=== PATIENT | male | born 1935 | race Two or more races ===

== ENCOUNTER 2021-07-11 10:26 | Inpatient (IN) | payer MEDICARE, BC ==
[~2021-07-11] VITALS: Ht 172.7 cm; Wt 82.6 kg
--- NOTE | 2021-07-11 10:46 | NUR ---
The patient BIBA RAKevin From Home "Weaker than usual, NOT able to care for self Covid +". The patient is alert and oriented x1. In room air and denies SOB. Respiration regular and unlabored. oxygen saturation level in room air is at 94%. Denies pain. Attached to the monitor. Will continue to monitor the patient.
--- NOTE | 2021-07-11 10:49 | NUR ---
STARTED LAC G 18, BLOOD SPECIMEN COLLECTED, SALINE LOCKED THE LINE
[2021-07-11 11:04] LABS: BASOPHILS % (AUTO) 0.5 % (0.0-2.0); HEMATOCRIT 41 % (39-51); LYMPHOCYTES # (AUTO) 0.8 K/uL (0.8-4.8); LYMPHOCYTES % (AUTO) 18.3 % (20.0-44.0); MEAN CORPUSCULAR HGB CONC 34 g/dl (31.0-36.0); MEAN CORPUSCULAR VOLUME 100 fL (80-96); MONOCYTES # (AUTO) 0.4 K/uL (0.1-1.30); MONOCYTES % (AUTO) 9.1 % (2.0-12.0); NEUTROPHILS # (AUTO) 3.1 K/uL (1.8-8.9); NEUTROPHILS % (AUTO) 72.1 % (43.0-81.0); PLATELET COUNT (AUTO) 156 K/uL (150-450); RED BLOOD CELL COUNT(AUTO) 4.16 MIL/uL (4.5-6.0); WHITE BLOOD COUNT (AUTO) 4.3 K/uL (4.3-11.0)
--- NOTE | 2021-07-11 11:13 | NUR ---
COVID SWAB DONE AND SENT TO THE LAB
[2021-07-11 11:14] LABS: CALCIUM, SERUM 8.9 mg/dL (8.5-10.1); CARBON DIOXIDE 22 mmol/L (21-32); CHLORIDE 102 mmol/L (98-107); CREATININE 0.8 mg/dL (0.6-1.3); GLUCOSE 90 mg/dL (74-106); POTASSIUM 4.4 mmol/L (3.5-5.1); SODIUM SERUM 136 mmol/L (136-145); UREA NITROGEN, BLOOD 29 mg/dL (7-18)
[2021-07-11 11:27] LABS: ALANINE AMINOTRANSFERASE 40 U/L (12-78); ALBUMIN 3.1 g/dL (3.4-5.0); ALKALINE PHOSPHATASE 42 U/L (46-116); ASPARTATE AMINOTRANSFERASE 53 U/L (15-37); BILIRUBIN,TOTAL 1.1 mg/dL (0.2-1.0); TOTAL PROTEIN, SERUM 6.7 g/dL (6.4-8.2)
[2021-07-11] MEDS ORDERED: DEXAMETHASONE SOD PHOSPHATE 10 MG/ML VIAL IV ONE (12:00)
--- NOTE | 2021-07-11 12:00 | NUR ---
pt received in bed aaox2. not in resp distress, breathing even and unlabored but noted satting @ 89% on RA. placed on o2 via nc@ 6lpm, only satting @ 91-92%. pt is now on simple face mask @ 10lpm satting @ 98%. Pt still unable to provide urine, still trying. will continue to moniotr pt
[2021-07-11] MEDS ORDERED: DEXAMETHASONE SOD PHOSPHATE 10 MG/ML VIAL ONE (12:01)
[2021-07-11 12:03] LABS: CREATINE KINASE, TOTAL 200 U/L (39-308); FERRITIN 448 ng/mL (8-388)
[2021-07-11 12:09] LABS: C-REACTIVE PROTEIN 6.6 mg/dL (0.0-0.9)
[2021-07-11 12:25] LABS: D-DIMER 1.26 mg/L(FEU (0.17-0.50)
[2021-07-11] MEDS ORDERED: LIDOCAINE 2% JEL UROJET 10 ML MM ONE ×2 (13:21→13:30)
--- NOTE | 2021-07-11 13:31 | NUR ---
URINE COLLECTED VIA IN AND OUT CATH WITH STRICT STERILE TECHNIQUE OBSERVED DUIRNG THE PROCEDURE. URINE SENT TO LAB
--- NOTE | 2021-07-11 13:41 | NUR ---
BED 104
--- NOTE | 2021-07-11 13:47 | NUR ---
[place] STEP DAUGHTER [phone]
[2021-07-11 13:50] LABS: BILIRUBIN,URINE SMALL (NEGATIVE); COLOR,URINE YELLOW (YELLOW); LEUKOCYTE ESTERASE ,URINE Negative (NEGATIVE); NITRITE, URINE Negative (NEGATIVE); PROTEIN,URINE 100 mg/dl (NEGATIVE); UGLUCOSE Negative (NEGATIVE)
[2021-07-11] MEDS ORDERED: ONDANSETRON HCL/PF 4 MG/2 ML VIAL IVP PRN (14:00)
[2021-07-11] MEDS ORDERED: IV NS 0.9% 1,000 ML IV PRN (14:00)
[2021-07-11] MEDS ORDERED: ACETAMINOPHEN 325 MG TABLET PO PRN (14:00)
--- NOTE | 2021-07-11 14:02 | NUR ---
PT'S STPE DAUGHTER CALLED, VERY RUDE, YELLING AND DOES NOT LET THE NURSE FINISH TALKING. SHE IS UPDATED WITH PT'S CONDITION AND MADE AWARE THAT HE NEEDS TO BE ADMITTED.
[2021-07-11 14:03] LABS: BACTERIA,URINE Few /HPF (None Seen); MUCUS,URINE Few /LPF (None Seen); RBC,URINE 0-2 /HPF (0-2); SQUAMOUS EPITHELIAL CELL,UR Few /HPF (None Seen); URINE AMORPHOUS URATE Few /HPF (None Seen); WBC,URINE 0-2 /HPF (0-3)
--- NOTE | 2021-07-11 14:16 | NUR ---
REPORT GIVEN TO BRENDAN JEAN FOR LUCRECIA
--- NOTE | 2021-07-11 14:44 | NUR ---
PT TRANSPORTED TO UNIT ON [place] WITH EMT AND RN AT BEDSIDE. WITH ACLS PROTOCOL. NAD NOTED DURING TRANSPORT.
[2021-07-11 15:02] VITALS: BP 133/60
--- NOTE | 2021-07-11 15:15 | NUR ---
EMPLOYMENT PROGRAMS ANALYST OPENING NOTES Received pt from ER with dx of COVID-19 PNA. Pt is a/o x2 to person and place. Pt has a simple mask with 10L, oxygen saturation of 97%, with no s/sx of acute respiratory distress or pain. Pt is able to use a urinal. Pt is on a cardiac diet. Pt has a (L) AC 18 gauge IV flushed, patent, with dressing dry and in tact. Pt vital signs are (T) 98.3; (HR) 58; (RR) 20; (O2) 97%; (BP) 133/60 with 0/10 pain. Safety measures in place with bed in lowest locked position, call light within reach, side rails up x2, and bed alarm on.
[2021-07-11 16:00] VITALS: BP 133/60
[2021-07-11] MEDS: ENOXAPARIN SODIUM 40 MG/0.4 ML DISP.SYRIN SQ SCH (17:19)
--- NOTE | 2021-07-11 18:45 | NUR ---
MOLD LAMINATOR CLOSING NOTES Pt resting comfortably in bed, just finished dinner and ate 75%. Pt has a simple mask with 10L, oxygen saturation of 97%, with no s/sx of respiratory distress or pain. Pt has a urinary output of 400ml on shift.. Pt is on a cardiac diet. Pt has a (L) AC 18 gauge IV infusing 0.9% normal saline @60ml/hr per MD order. Safety measures in place with bed in lowest locked position, call light within reach, side rails up x2, and bed alarm on.
[2021-07-11 20:00] VITALS: BP 112/60
[2021-07-11] MEDS ORDERED: REMDESIVIR (CHARGED) 200 MG, *LOADING DOSE 1 EA in IV NS 0.9% 210 ML IV ONE (21:00)
[2021-07-12] VITALS: BP 122/61
[2021-07-12 04:00] VITALS: BP 143/73
--- NOTE | 2021-07-12 07:15 | NUR ---
RN OPENING NOTE Received patient asleep in bed on simple mask 10L appears calm and relaxed no signs of distress. Tele reading SR 80-90s. AOx2-3. On a diaper. Has LAC #18 running NS @ 60ml/hr. Safety measures maintained. Call light within reach. Will cont to monitor.
[2021-07-12 08:00] VITALS: BP 143/66
[2021-07-12] MEDS: DEXAMETHASONE SOD PHOSPHATE 4 MG/ML VIAL IV SCH (08:46)
[2021-07-12] MEDS: ENSURE ENLIVE 237 ML LIQUID (VANILLA) PO SCH ×2 (09:30→17:49)
[2021-07-12 10:53] LABS: ABG BASE EXCESS -3.4 mmol/L; ABG OXYGEN SATURATION 89.8 % (92.0-98.5); ABG PCO2 26.5 mmHg (35.0-45.0); ABG PH 7.466 (7.350-7.450); ABG PO2 56.3 mmHg (75.0-100.0); AaDO2 234.4 mmHg; COHb 0.2 % (0.5-1.5); O2Hb 89.6 % (94.0-97.0); SITE, ABG Right Radial; VENT MODE, BG SIMPLE MASK
--- NOTE | 2021-07-12 11:00 | NUR ---
ABG RESULTS REPORTED TO DR. CROW AND VAL. NEW ORDERS TO PUT PATIENT ON HIGH FLOW. RT AT BEDSIDE. HIGHFLOW 50L 80%
[2021-07-12 12:00] VITALS: BP 119/32
[2021-07-12] MEDS ORDERED: REMDESIVIR (CHARGED) 200 MG, *LOADING DOSE 1 EA in IV NS 0.9% 210 ML IV ONE (12:00)
[2021-07-12 15:45] LABS: BASOPHILS % (AUTO) 0.2 % (0.0-2.0); HEMATOCRIT 39 % (39-51); HEMOGLOBIN 13.5 g/dL (13.5-17.5); LYMPHOCYTES # (AUTO) 0.4 K/uL (0.8-4.8); LYMPHOCYTES % (AUTO) 4.3 % (20.0-44.0); MEAN CORPUSCULAR HGB CONC 34 g/dl (31.0-36.0); MEAN CORPUSCULAR VOLUME 98 fL (80-96); MONOCYTES # (AUTO) 0.3 K/uL (0.1-1.30); MONOCYTES % (AUTO) 3.7 % (2.0-12.0); NEUTROPHILS # (AUTO) 8.6 K/uL (1.8-8.9); NEUTROPHILS % (AUTO) 91.8 % (43.0-81.0); PLATELET COUNT (AUTO) 161 K/uL (150-450); RED BLOOD CELL COUNT(AUTO) 4.01 MIL/uL (4.5-6.0); WHITE BLOOD COUNT (AUTO) 9.4 K/uL (4.3-11.0)
[2021-07-12 15:57] LABS: CALCIUM, SERUM 8.1 mg/dL (8.5-10.1); CREATININE 0.7 mg/dL (0.6-1.3); PHOSPHORUS 2.1 mg/dL (2.5-4.9); POTASSIUM 4.2 mmol/L (3.5-5.1)
[2021-07-12 16:00] VITALS: BP 125/49
[2021-07-12] MEDS ORDERED: TOCILIZUMAB 400 MG in IV NS 0.9% 80 ML IV ONE (17:30)
--- NOTE | 2021-07-12 18:47 | NUR ---
RN CLOSING NOTE Patient in bed asleep on high flow tolerating well. Received Remdesivir bag #1 tolerated well. Flushed with 30ml saline after. No co pain or discomfort. AO x2-3 has episodes of sinus bradycardia 49 lowest. Patient has good food intake. All due meds given. Vital signs within normal limits. Safety measures maintained. Will endorse to operation shift supervisor nurse for rochelle.
--- NOTE | 2021-07-12 19:20 | NUR ---
RN NOTE RECEIVED PATIENT IN BED RESTING ALERT ORIENTED X2-3 VERBALLY RESPONSIVE ON HIGH FLOW OXYGEN O2:95% IV SITE IS ON LEFT AC INTACT PATENT CONTINET TO BOWEL/BLADDER SAFETY MEASURE IMPLEMENT BED IN LOW POSITION AND LOCKED,CALL LIGHT WITHIN REACH CONTINUE TO MONITOR.
[2021-07-12 20:00] VITALS: BP 114/48
[2021-07-12] MEDS: ENOXAPARIN SODIUM 40 MG/0.4 ML DISP.SYRIN SQ SCH (20:29)
[2021-07-12] MEDS ORDERED: REMDESIVIR (CHARGED) 100 MG in IV NS 0.9% 100 ML IV SCH (21:00)
[2021-07-12] MEDS ORDERED: REMDESIVIR (CHARGED) 100 MG in IV NS 0.9% 230 ML IV SCH (21:00)
[2021-07-13] VITALS: BP 125/53
[2021-07-13 04:00] VITALS: BP 130/64
--- NOTE | 2021-07-13 06:32 | NUR ---
RN NOTE PATIENT REMAINS ON ALERT ORIENTED 2-3 VERBALLY RESPONSIVE,NO SOB NOT ACUTE DISTRESS NOTED HE IS ON HIGH FLOW OXYGEN 50 L FIO2:90% ALL DUE MEDS GIVEN MD ORDERED KEEP CLEAN AND DRY ALL THE TIME ALL NEEDS MET.KEPT CLEAN AND DRY ALL THE TIME ALL NEEDS MET ENDORSE NEXT COMING SHIFT FOR CODOMINATION OF CARE.
[2021-07-13 07:14] LABS: BASOPHILS % (AUTO) 0.2 % (0.0-2.0); HEMATOCRIT 40 % (39-51); HEMOGLOBIN 13.6 g/dL (13.5-17.5); LYMPHOCYTES # (AUTO) 0.7 K/uL (0.8-4.8); LYMPHOCYTES % (AUTO) 6.5 % (20.0-44.0); MEAN CORPUSCULAR HGB CONC 34 g/dl (31.0-36.0); MEAN CORPUSCULAR VOLUME 100 fL (80-96); MONOCYTES # (AUTO) 0.2 K/uL (0.1-1.30); MONOCYTES % (AUTO) 2.3 % (2.0-12.0); NEUTROPHILS # (AUTO) 9.6 K/uL (1.8-8.9); PLATELET COUNT (AUTO) 161 K/uL (150-450); WHITE BLOOD COUNT (AUTO) 10.6 K/uL (4.3-11.0)
--- NOTE | 2021-07-13 07:15 | NUR ---
RN OPENING NOTE RECEIVED PATIENT IN BED RESTING ALERT ORIENTED X1-2, FORGETFUL AND COHERENT. PATIENT ON HIGH FLOW OXYGEN AT 50 WITH FIO2 90%. WITH IV SITE IS ON LEFT AC INTACT PATENT AND LEFT HAND G22. PATIENT IS CONTINENT OF BOWEL/BLADDER. SAFETY MEASURE ENSURED WITH BED IN LOW POSITION AND LOCKED, CALL LIGHT WITHIN REACH AT ALL TIMES. WILL CONTINUE TO MONITOR PATIENT.
[2021-07-13 07:41] LABS: ALBUMIN 2.3 g/dL (3.4-5.0); BILIRUBIN,DIRECT 0.2 mg/dL (0.0-0.2); BILIRUBIN,TOTAL 0.9 mg/dL (0.2-1.0); CALCIUM, SERUM 8.4 mg/dL (8.5-10.1); CREATININE 0.7 mg/dL (0.6-1.3); MAGNESIUM 2.1 mg/dL (1.8-2.4); PHOSPHORUS 2.8 mg/dL (2.5-4.9); TOTAL PROTEIN, SERUM 5.8 g/dL (6.4-8.2)
[2021-07-13 08:00] VITALS: BP 122/59
[2021-07-13] MEDS: DEXAMETHASONE SOD PHOSPHATE 4 MG/ML VIAL IV SCH (09:02)
[2021-07-13] MEDS: ENSURE ENLIVE 237 ML LIQUID (VANILLA) PO SCH ×2 (09:03→18:02)
--- NOTE | 2021-07-13 10:00 | NUR ---
RN NOTE PATIENT SEEN BY DR. CROW. WILL CONTINUE TO MONITOR PATIENT.
--- NOTE | 2021-07-13 11:00 | NUR ---
RN NOTE OXYGEN TITRATED ACCORDINGLY PER MD ORDER. WILL CONTINUE TO MONITOR PATIENT.
[2021-07-13] MEDS: REMDESIVIR (CHARGED) 100 MG in IV NS 0.9% 100 ML IV SCH (11:47)
[2021-07-13 12:00] VITALS: BP 124/64
[2021-07-13 16:00] VITALS: BP 113/70
--- NOTE | 2021-07-13 19:00 | NUR ---
RN CLOSING NOTE RECEIVED PATIENT IN BED RESTING ALERT ORIENTED X1-2, FORGETFUL AND COHERENT. PATIENT ON HIGH FLOW OXYGEN AT 60 WITH FIO2 100%. WITH MD ORDER TO TITRATE ACCORDINGLY. WITH IV SITE IS ON LEFT AC INTACT PATENT AND LEFT HAND G22. PATIENT IS CONTINENT OF BOWEL/BLADDER. SAFETY MEASURE ENSURED WITH BED IN LOW POSITION AND LOCKED, CALL LIGHT WITHIN REACH AT ALL TIMES. WILL ENDORSE PATIENT FOR CONTINUITY OF CARE.
--- NOTE | 2021-07-13 19:58 | NUR ---
RN NOTE OXYGEN TITRATED ACCORDINGLY PER MD ORDER. WILL CONTINUE TO MONITOR PATIENT.
[2021-07-13 20:00] VITALS: BP 143/62
[2021-07-13] MEDS: ENOXAPARIN SODIUM 40 MG/0.4 ML DISP.SYRIN SQ SCH (20:36)
[2021-07-14] VITALS: BP 124/72
[2021-07-14 04:00] VITALS: BP 107/53
[2021-07-14 06:04] LABS: BASOPHILS % (AUTO) 0.1 % (0.0-2.0); HEMATOCRIT 43 % (39-51); HEMOGLOBIN 14.8 g/dL (13.5-17.5); LYMPHOCYTES # (AUTO) 0.6 K/uL (0.8-4.8); LYMPHOCYTES % (AUTO) 5.3 % (20.0-44.0); MEAN CORPUSCULAR HGB CONC 34 g/dl (31.0-36.0); MEAN CORPUSCULAR VOLUME 99 fL (80-96); MONOCYTES # (AUTO) 0.4 K/uL (0.1-1.30); MONOCYTES % (AUTO) 3.6 % (2.0-12.0); PLATELET COUNT (AUTO) 207 K/uL (150-450); RED BLOOD CELL COUNT(AUTO) 4.36 MIL/uL (4.5-6.0); WHITE BLOOD COUNT (AUTO) 10.9 K/uL (4.3-11.0)
[2021-07-14 06:36] LABS: ALBUMIN 2.4 g/dL (3.4-5.0); BILIRUBIN,DIRECT 0.3 mg/dL (0.0-0.2); CALCIUM, SERUM 8.6 mg/dL (8.5-10.1); CREATININE 0.7 mg/dL (0.6-1.3); POTASSIUM 4.1 mmol/L (3.5-5.1); TOTAL PROTEIN, SERUM 5.9 g/dL (6.4-8.2)
--- NOTE | 2021-07-14 06:38 | NUR ---
RN NOTES, NO SIGNIFICANT CHANGE IN CONDITION DURING THE NIGHT, CONTINUE ON HF AT 60L 100% WITH O2 >90%, NO SOB/ACUTE DISTRESS, WILL ENDORSE CONTINUITY OF CARE TO ONCOMING NURSE
--- NOTE | 2021-07-14 07:47 | NUR ---
RN OPENING NOTE Pt is Awake, alert to oriented x 3, no respiratory distress, no SOB. on High flow 60L 100 FI02, Left AC/Hand with no s/sx of infiltration. On safety precautions implemented bed locked in lowest position, call light within reach.
[2021-07-14 08:00] VITALS: BP 142/73
[2021-07-14] MEDS: ENSURE ENLIVE 237 ML LIQUID (VANILLA) PO SCH ×2 (09:09→17:14)
[2021-07-14] MEDS: DEXAMETHASONE SOD PHOSPHATE 4 MG/ML VIAL IV SCH (09:09)
--- NOTE | 2021-07-14 09:12 | NUR ---
WOUND CARE CONSULT: REVIEWED CHART AND NURSING DOCUMENTATION WHICH INDICATES INTACT SKIN. DISCUSSED SKIN PROTECTION WITH NURSING STAFF. MD IN AGREEMENT WITH PLAN OF CARE.
[2021-07-14 12:00] VITALS: BP 126/66
[2021-07-14] MEDS: REMDESIVIR (CHARGED) 100 MG in IV NS 0.9% 100 ML IV SCH (12:20)
[2021-07-14 16:00] VITALS: BP 152/81
--- NOTE | 2021-07-14 18:48 | NUR ---
RN CLOSING NOTE Pt is A/O X 2 with periods of restlessness and agitation, noted confused past 1800 states he needs to go back to work and attempts to get out of bed unassisted, MD made aware with order for soft wrist restraints. Patient remains on droplet/contact isolation for COVID, has no fever, no cough, no congestion. Safety precautions implemented, bed locked in lowest position, call light within reach.
--- NOTE | 2021-07-14 19:55 | NUR ---
RN NOTE PATIENT ALERT AND ORIENTED X1-2 WITH PERIODS OF FORGETFULNESS. CURRENTLY ON HF 60L 100% FIO2, NO SIGNS OF ACUTE RESPIRATORY DISTRESS. NO SIGNS OF DISCOMFORT. WITH BILATERAL SOFT WRIST RESTRAINTS, CIRCULATION AND SKIN CHECKED. NO SIGNS OF SKIN BREAKDOWN. IV ACCESS ON LEFT AC #18, PATENT AND INTACT. FLUSHED WITH NS. BED LOCKED AND IN LOWEST POSITION. BED ALARM ON. CALL LIGHT WITHIN REACH. ALL NEEDS ANTICIPATED.
[2021-07-14 20:00] VITALS: BP 144/74
[2021-07-14] MEDS: ENOXAPARIN SODIUM 40 MG/0.4 ML DISP.SYRIN SQ SCH (20:58)
[2021-07-15] VITALS (19 sets, daily range): BP systolic 109–184; BP diastolic 61–102
--- NOTE | 2021-07-15 07:11 | NUR ---
RN NOTE PATIENT RESTING IN BED. NO SIGNS OF ACUTE DISTRESS. NO SIGNIFICANT CHANGES DURING THIS SHIFT. ALL DUE MEDS GIVEN ORDERED. BED LOCKED AND IN LOWEST POSITION. CALL LIGHT WITHIN REACH. WILL ENDORSE TO AM SHIFT.
--- NOTE | 2021-07-15 07:16 | NUR ---
RN OPENING NOTE Pt is awake, A/O X2, with episodes of getting out of bed unassisted, redirected back to bed. No aggressive behavior. On droplet/contact precautions for COVID. On HF on 60 FI02 100%, safety precautions implemented, bed locked in lowest position, call light within reach, bed alarm on.
[2021-07-15] MEDS: DEXAMETHASONE SOD PHOSPHATE 4 MG/ML VIAL IV SCH (08:16)
[2021-07-15] MEDS: ENSURE ENLIVE 237 ML LIQUID (VANILLA) PO SCH ×2 (08:17→17:00)
--- NOTE | 2021-07-15 08:30 | NUR ---
RT Pt received on Airvo 60L and 100% with SpO2 78-81%, pt started on Vapotherm 40L and 100% and SpO2 improved to 88-92%. No respiratory distress noted at this time. Addendum: 07/15/21 at 0859 by CHRISTOPHER GROSSMAN RT Amended: Links added.
[2021-07-15 09:31] LABS: ABG BASE EXCESS -0.9 mmol/L; ABG OXYGEN SATURATION 87.3 % (92.0-98.5); ABG PCO2 25.8 mmHg (35.0-45.0); ABG PH 7.513 (7.350-7.450); ABG PO2 50.2 mmHg (75.0-100.0); COHb 0.5 % (0.5-1.5); MetHb 0.3 % (0.0-1.5); O2Hb 86.6 % (94.0-97.0); SITE, ABG Right Radial; VENT MODE, BG VAPOTHERM 40L/100%
--- NOTE | 2021-07-15 12:16 | NUR ---
RN NOTE 02 sat checked on room air 80%. On high flow 40% FI02 100% and Non-rebreather mask @ 15 Liters currently satting at 88-90%/
[2021-07-15] MEDS: REMDESIVIR (CHARGED) 100 MG in IV NS 0.9% 100 ML IV SCH (12:29)
[2021-07-15] MEDS ORDERED: ACETAMINOPHEN 325 MG TABLET PO ONE (12:30)
[2021-07-15] MEDS ORDERED: diphenhydrAMINE HCL 50 MG/ML VIAL IV ONE (12:30)
[2021-07-15 12:32] LABS: ABG BASE EXCESS -0.8 mmol/L; ABG OXYGEN SATURATION 87.5 % (92.0-98.5); ABG PCO2 24.4 mmHg (35.0-45.0); ABG PH 7.529 (7.350-7.450); ABG PO2 50.4 mmHg (75.0-100.0); AaDO2 638.2 mmHg; COHb 0.4 % (0.5-1.5); MetHb 0.3 % (0.0-1.5); O2Hb 86.9 % (94.0-97.0); SITE, ABG Right Brachial; VENT MODE, BG HFNC 40L/100% + NRB 15lpm
[2021-07-15 13:00] LABS: BASOPHILS % (AUTO) 0.1 % (0.0-2.0); HEMATOCRIT 45 % (39-51); HEMOGLOBIN 14.8 g/dL (13.5-17.5); LYMPHOCYTES # (AUTO) 0.5 K/uL (0.8-4.8); LYMPHOCYTES % (AUTO) 3.4 % (20.0-44.0); MEAN CORPUSCULAR HGB CONC 33 g/dl (31.0-36.0); MEAN CORPUSCULAR VOLUME 99 fL (80-96); MONOCYTES # (AUTO) 0.5 K/uL (0.1-1.30); MONOCYTES % (AUTO) 3.5 % (2.0-12.0); NEUTROPHILS # (AUTO) 13.2 K/uL (1.8-8.9); PLATELET COUNT (AUTO) 281 K/uL (150-450); RED BLOOD CELL COUNT(AUTO) 4.49 MIL/uL (4.5-6.0); WHITE BLOOD COUNT (AUTO) 14.2 K/uL (4.3-11.0)
[2021-07-15] MEDS ORDERED: NS 0.9% IV ONE (13:00)
[2021-07-15] MEDS ORDERED: TOCILIZUMAB IV ONE (13:00)
--- NOTE | 2021-07-15 13:14 | NUR ---
BIOMATHEMATICIAN NOTE Gave report to David CORNELIUS/BRENDAN for continuation of care.
--- NOTE | 2021-07-15 13:15 | NUR ---
FULLERETTE RECEIVED PT BY BED WITH MONITOR FROM [employer]. PT PLACED ON HIFLOW WITH NONREBREATHER MASK. SPO2 96 ON CURRENT SETUP. PT AWAKE, FOLLOWS COMMANDS, CONFUSED. PT TRANSFERRED FOR CLOSER MONITORING
--- NOTE | 2021-07-15 13:45 | NUR ---
COOKING APPLIANCE REPAIR TECHNICIAN PT CONFUSED. REFUSED TYLENOL AND NEW IV LINE PLACEMENT. WILL ATTEMPT IV LINE PLACEMENT LATER. PT COMFORTABLE ON DOUBLE SETUP WITH SPO2 96%.
--- NOTE | 2021-07-15 14:00 | NUR ---
HUMIDIFIER MAINTENANCE WORKER PT REMOVING MASK AND LINES. REORIENTED UNSUCCESSFULLY. SOFT WRIST RESTRAINTS PLACED. SPO2 94% ON CURRENT O2 SETUP.
[2021-07-15] MEDS: CEFEPIME 2 GM in IV D5W 100 ML IV SCH ×2 (14:25→20:33)
[2021-07-15] MEDS ORDERED: Z GUARD REMEDY 4 OZ OINT TP PRN (17:30)
--- NOTE | 2021-07-15 17:49 | NUR ---
CONSTRUCTION SITE CROSSING GUARD FOUND PT OFF RESTRAINTS AND STANDING AT SIDE OF BED WITH O2 MASK AND CANNULA OFF. REORIENTED BUT REMAINED CONFUSED. O2 CANNULA AND MASK PLACED BACK ON PT. ASSISTED BACK TO BED. SOFT WRIST RESTRAINTS REAPPLIED.
[2021-07-15 18:08] LABS: ALBUMIN 2.6 g/dL (3.4-5.0); BILIRUBIN,DIRECT 0.3 mg/dL (0.0-0.2); BILIRUBIN,TOTAL 1.1 mg/dL (0.2-1.0); CALCIUM, SERUM 8.6 mg/dL (8.5-10.1); CREATININE 0.7 mg/dL (0.6-1.3); POTASSIUM 4.5 mmol/L (3.5-5.1); TOTAL PROTEIN, SERUM 6.5 g/dL (6.4-8.2)
--- NOTE | 2021-07-15 19:05 | NUR ---
RECEIVED PT ON BED VERY AGITATED AND CONFUSED ON HIGH FLOW 40L 100% AND 1L O2 VIA NRM, SPO2 88-90% PT ON BILATERAL WRIST SOFT RESTRAINTS AND STILL KEEP ON GETTING UP ON BED, WITH THIS HE DESATURATE VERY PAST UP TO 84 TELEMONITOR READS SINUS RHYTHM ON 80'S HAVE LFA# 20 AND LHAND #22 IV PATENT AND FLUSHED BED ON LOWEST POSITION AND LOCKED ROBERTO RAILS UP X2 WILL CONT TO MONITOR
--- NOTE | 2021-07-15 20:00 | NUR ---
REPORTED TO DR BAILEY THAT PT IS VERY AGITATED AND KEEP ON GETTING UP ON BED DESPITE THE BILATER WRIST SOFT RESTRAINTS AND HE IS REMOVING THE HIGHFLOW AND NON REBREATHER THAT MAKE HIM DESATURATE TO SPO2 LOW 80'S WITH ORDER FOR HALDOL 5MG IV Q6H PRN FOR AGITATION NOTED AND CARRIED OUT
--- NOTE | 2021-07-15 20:01 | NUR ---
RECEIVED PT ON HFNC 40L, FIO2 100% + NRB. PT AGITATED O2 SAT 88%-90%. RN AWARE. CONTINUE TO MONITOR. Addendum: 07/15/21 at 2002 by IRINA HURTADO RT Amended: Links added.
[2021-07-15] MEDS ORDERED: HALOPERIDOL LACTATE INJ 5 MG/ML VIAL IV ONE (20:30)
[2021-07-15] MEDS: HALOPERIDOL LACTATE INJ 5 MG/ML VIAL IV PRN (20:33)
[2021-07-15] MEDS: ENOXAPARIN SODIUM 40 MG/0.4 ML DISP.SYRIN SQ SCH (20:44)
--- NOTE | 2021-07-15 21:40 | NUR ---
@ 2114 PT CONTINUE TO DESATURATE WITH SPO2 82-84% INFORMED DR GIBBS, DR GIBBS CAME TO THE UNIT AND ASSESSED THE PT, WITH ORDER TO INTUBATE THE PT, I CALLED ER MD TO INTUBATE THE PT, WHILE WAITING FOR THE ER MD DR. GIBBS CALLED AND TALKED TO THE PT DAUGHTER GIL AND THE DAUGHTER AGREED TO THE INTUBATION OF THE PT, DR ANDRE ER MD CAME TO UNIT AND INTUBATE THE PT @ 2130, STAT CXRAY WAS ORDERED AND RNGT INSERTED PLACEMENT WAS CHECKED AND FLEMING WAS INSERTED ALSO
--- NOTE | 2021-07-15 21:47 | NUR ---
PT ORALLY INTUBATED BY DR ANDRE. 7.5 ETT SECURED AT 25CM AT THE LIP, COLOR CHANGED ON CO2 DETECTOR AND BILAT CHEST RISE. PT PLACED ON 840 VENT AC 16, 550, 100%, +10. VENT ALARMS SET AND AUDIBLE. VENT PLUGGED INTO RED OUTLET. Addendum: 07/15/21 at 2154 by IRINA HURTADO RT Amended: Links added.
[2021-07-15] MEDS: PROPOFOL 100 ML IV PRN (22:00)
--- NOTE | 2021-07-15 23:00 | NUR ---
REPORTED TO dR Hartley THAT PT BP IS 184/102 POST INTUBATION WITH ORDER FOR HYDRALAZINE 10 MG IVP Q4H PRN FOR SBP >160 NOTED AND CARRIED OUT
[2021-07-15] MEDS ORDERED: hydrALAZINE HCL IV 20 MG VIAL IV PRN (23:30)
[2021-07-15 23:51] LABS: ABG OXYGEN SATURATION 97.2 % (92.0-98.5); ABG PCO2 37.3 mmHg (35.0-45.0); ABG PH 7.312 (7.350-7.450); ABG PO2 108.1 mmHg (75.0-100.0); AaDO2 567.6 mmHg; COHb 0.3 % (0.5-1.5); MetHb 0.4 % (0.0-1.5); O2Hb 96.5 % (94.0-97.0); PEEP,BG 10 cm H2O; SITE, ABG Right Brachial
--- NOTE | 2021-07-15 23:52 | NUR ---
ABG DONE POST INTUBATION. NOTIFIED RN WITH THE RESULT.
[2021-07-16] VITALS (94 sets, daily range): BP systolic 78–186; BP diastolic 53–98
[2021-07-16] MEDS ORDERED: NOREPINEPHRINE 8MG/250ML RTU 250 ML IV ONE (01:10)
--- NOTE | 2021-07-16 01:10 | NUR ---
REPORTED TO DR GIBBS THAT PT BP IS LOW NOW ITH LATEST BP OF 78/54 WITH ORDER OF LEVOPHED TO TITRATE PER PROTOCOL TO MAINTAIN MAP >65 AND PICC LINE INSERTION NOTED AND CARRIED OUT
[2021-07-16] MEDS: NOREPINEPHRINE 8 MG in IV NS 0.9% 242 ML IV PRN (01:11)
[2021-07-16] MEDS: PROPOFOL 100 ML IV PRN ×10 (02:01→23:01)
--- NOTE | 2021-07-16 02:30 | NUR ---
REPORTED TO DR GIBBS THAT PT PROPOFOL IS ON 100 MCG/KG/MIN AND STILL PT IS STILL MOVING MD ORDER ATIVAN 2MG IV Q6H PRN NOTED AND CARRIED OUT
[2021-07-16] MEDS: HALOPERIDOL LACTATE INJ 5 MG/ML VIAL IV PRN (02:41)
[2021-07-16] MEDS ORDERED: LORAZEPAM INJ 2 MG/ML VIAL IV PRN (03:00)
[2021-07-16] MEDS: CEFEPIME 2 GM in IV D5W 100 ML IV SCH ×3 (03:59→20:00)
[2021-07-16 04:39] LABS: BASOPHILS % (AUTO) 0.1 % (0.0-2.0); HEMATOCRIT 45 % (39-51); HEMOGLOBIN 15.1 g/dL (13.5-17.5); LYMPHOCYTES # (AUTO) 0.6 K/uL (0.8-4.8); LYMPHOCYTES % (AUTO) 4.5 % (20.0-44.0); MEAN CORPUSCULAR HGB CONC 34 g/dl (31.0-36.0); MEAN CORPUSCULAR VOLUME 100 fL (80-96); MONOCYTES # (AUTO) 0.9 K/uL (0.1-1.30); MONOCYTES % (AUTO) 7.3 % (2.0-12.0); NEUTROPHILS # (AUTO) 11.1 K/uL (1.8-8.9); NEUTROPHILS % (AUTO) 88.1 % (43.0-81.0); PLATELET COUNT (AUTO) 304 K/uL (150-450); WHITE BLOOD COUNT (AUTO) 12.6 K/uL (4.3-11.0)
[2021-07-16 05:03] LABS: ALBUMIN 2.5 g/dL (3.4-5.0); BILIRUBIN,DIRECT 0.4 mg/dL (0.0-0.2); BILIRUBIN,TOTAL 1.2 mg/dL (0.2-1.0); CALCIUM, SERUM 8.3 mg/dL (8.5-10.1); CREATININE 0.7 mg/dL (0.6-1.3); TOTAL PROTEIN, SERUM 6.4 g/dL (6.4-8.2)
--- NOTE | 2021-07-16 06:53 | NUR ---
PT IN BED SEDATED ON ETT/VENT SETTING PER MD FIO2 80% SPO2 96% STILL ON PROPOFOL @ 100 MCG/KG/MIN LEVOPHED@ 0.06 MCG/KG/MIN INFUSING WELL, TELEMONITOR READS SINUS RHYTHM WITH EPISODES OF SINUS ROSY 55-70 BPM, STILL HAVE BILATERAL WRIST SOFT RESTRAINTS FOR SELF EXTUBATION PRECAUTION CIRCULATION WAS CHECKED REGULARLY BED ON LOWEST POSITION AND LOCKED SIDE RAILS UP X 2 CALL LIGHT WITHIN REACH WILL CONT TO MONITOR
--- NOTE | 2021-07-16 07:10 | NUR ---
ICU OPENING NOTES RECEIVED PT IN BED SEDATED. ON ETT/VENT SETTINGS TOLERATING WELL. ON PROPOFOL @100 MCG/KG/MIN, LEVOPHED@ 0.06 MCG/KG/MIN INFUSING WELL. TELE MONITOR READS SR-SB. BILATERAL SOFT WRIST RESTRAINTS NOTED. CIRCULATION CHECKED. NPO. SAFETY MEASURES IN PLACE. CALL LIGHT WITHIN REACH. BED LOCKED AND IN LOWEST POSITION WITH SIDE RAILS UP X2. WILL CONTINUE TO MONITOR.
--- NOTE | 2021-07-16 07:51 | NUR ---
WOUND CARE FOLLOW UP: PT NOW INTUBATED AND WITH PERINEAL REDNESS PER NURSING STAFF. RECOMMENDATIONS MADE FOR SKIN PROTECTION. DISCUSSED WITH NURSING STAFF. FIRST STEP LOW AIRLOSS MATTRESS IS ON ORDER. MD IN AGREEMENT WITH PLAN OF CARE.
[2021-07-16 08:12] LABS: ABG BASE EXCESS -4.7 mmol/L; ABG OXYGEN SATURATION 96.6 % (92.0-98.5); ABG PCO2 35.1 mmHg (35.0-45.0); ABG PH 7.368 (7.350-7.450); ABG PO2 96.3 mmHg (75.0-100.0); AaDO2 437.3 mmHg; COHb 0.2 % (0.5-1.5); MetHb 0.2 % (0.0-1.5); O2Hb 96.2 % (94.0-97.0); PEEP,BG 10 cm H2O; SITE, ABG Right Radial; VT, ABG 550 mL
--- NOTE | 2021-07-16 08:24 | NUR ---
vent changes below per dr. Wynne: AC 28 VT 450 FIO2 70% PEEP +10 Addendum: 07/16/21 at 0825 by PAUL GALLO RT Amended: Links added.
--- NOTE | 2021-07-16 08:45 | NUR ---
ET TUBE ADJUSTED (pushed 2 cm in). ET TUBE ADJUSTED FROM 25 CM TO 27CM BENNETT CROW Addendum: 07/16/21 at 0847 by PAUL GALLO RT Amended: Links added.
[2021-07-16] MEDS: DEXAMETHASONE SOD PHOSPHATE 4 MG/ML VIAL IV SCH (08:49)
[2021-07-16] MEDS: ENSURE ENLIVE 237 ML LIQUID (VANILLA) PO SCH ×2 (09:00→17:00)
[2021-07-16] MEDS: CLOTRIMAZOLE 1% 15 GM TUBE TP SCH ×2 (09:09→17:00)
[2021-07-16] MEDS ORDERED: ROCURONIUM BROMIDE 50 MG/5 ML IV ONE (09:26)
[2021-07-16] MEDS ORDERED: ETOMIDATE 2 MG/ML VIAL IV ONE (09:26)
--- NOTE | 2021-07-16 09:41 | NUR ---
RN NOTES BAYRON PICCLINE INSERTED. STAT CXR ORDERED TO CONFIRM PLACEMENT.
[2021-07-16] MEDS: ENOXAPARIN SODIUM 40 MG/0.4 ML DISP.SYRIN SQ SCH ×2 (11:00→20:02)
[2021-07-16] MEDS: REMDESIVIR (CHARGED) 100 MG in IV NS 0.9% 100 ML IV SCH (12:23)
[2021-07-16] MEDS ORDERED: ACETAMINOPHEN 325 MG TABLET PO ONE (12:30)
[2021-07-16] MEDS ORDERED: diphenhydrAMINE HCL 50 MG/ML VIAL IV ONE (12:30)
[2021-07-16] MEDS ORDERED: NS 0.9% IV ONE (13:00)
[2021-07-16] MEDS ORDERED: TOCILIZUMAB IV ONE (13:00)
[2021-07-16] MEDS: IV 1/2NS 1000 ML 1,000 ML IV PRN (18:11)
--- NOTE | 2021-07-16 18:50 | NUR ---
ICU CLOSING NOTES NO SIGNIFICANT CHANGES THROUGHOUT THE SHIFT. SEDATED ON DIPRIVAN @100MCGS/KG/MIN. LEVO @0/06MCG/KG/MIN. TOLERATING VENT SETTINGS WELL. ALL DUE MEDS GIVEN. KEPT CLEAN AND COMFORTABLE. SAFETY MEASURES IN PLACE. WILL ENDORSE TO NIGHT RN FOR LUCRECIA.
--- NOTE | 2021-07-16 19:05 | NUR ---
RECEIVED PT ON BED SEDATED ON ETT/VENT SETTING PER MD FIO2 70% BUT SPO2 SUSTAINING ON 88-89% ASK RT TO ADJUST FIO2, RT ADJUST FIO2 TO 80% NOW SPO2 92-93% BEDSIDE MONITOR READS SINUS ROSY 50'S PER AM SHIFT MD IS AWARE, HAVE RNARE NGTUBE CLAMPED, HAVE BAYRON PICC LINE WITH ONGOIGN PROPOFOL @ 100 MCG/KG/MIN AND LEVOPHED @ 0.04 MCG/KG/MIN AND 1/2 NS @ 75 ML/HR INFUSING WELL, HAVE BILATERAL WRIST SOFT RESTRAINTS FOR SELF EXTUBATION PRECATION CIRCULATION WILL BE CHECKED REGULARLY, BED ON LOWET POSITION AND LOCKED SIDE RAILS UP X2 WILL CONT TO MONITOR
--- NOTE | 2021-07-16 19:16 | NUR ---
RCVD PT ORALLY INTUBATED WITH ET TUBE 7.5 SECURED @ 27 CM LIP LINE ON VENT WITH THE SETTINGS OF AC 28, VT 450, FIO2 70%, PEEP 10. PT IS SEDATED. SUCTIONED SMALL AMOUNT OF WHITE THICK SECRETIONS. CUFF CHECKED CATERING ASSISTANT. VENT PLUGGED INTO RED OUTLET , VENT ALARMS SET AND AUDIBLE. AMBU BAG AT BEDSIDE. WILL CONTINUE TO MONITOR PT T/O SHIFT.
--- NOTE | 2021-07-16 22:10 | NUR ---
RECEIVED CALL FROM PT DAUGHTER SHANDA, SHE TOLD ME THAT SHE WANT TO TALK TO THE DOCTORS WHO IS MANAGING TO HIS FATHER AND SHE IS PLANNING TO TRANSFER THE PT TO [facility], I TOLD HER THAT I WILL INFORM THE MORNING DOCTOR TO CALL HER AND UPDATE HER ABOUT THE CONDITION OF HER FATHER AND THEY CAN DISCUSS HER PLAN WITH THE DOCTORS INVOLVED ON HER CARE
[2021-07-17] VITALS (96 sets, daily range): BP systolic 73–173; BP diastolic 45–83
[2021-07-17] MEDS: PROPOFOL 100 ML IV PRN ×9 (01:32→22:54)
[2021-07-17] MEDS: NOREPINEPHRINE 8 MG in IV NS 0.9% 242 ML IV PRN (03:09)
[2021-07-17] MEDS: CEFEPIME 2 GM in IV D5W 100 ML IV SCH ×2 (03:29→11:35)
--- NOTE | 2021-07-17 03:30 | NUR ---
PT IS SUSTAINING HR OF 44-49 BPM TITRATE DOWN PROPOFOL BUT CAN LOWER ONLY UP TO 80 MCG/KG/MIN LOWER THAN THAT PT BECOME TACHYPNEIC AND DESATURATE CHARGE NURSE MADE AWARE WILL CONT TO MONITOR
[2021-07-17 04:31] LABS: BASOPHILS % (AUTO) 0.3 % (0.0-2.0); HEMATOCRIT 43 % (39-51); HEMOGLOBIN 14.7 g/dL (13.5-17.5); LYMPHOCYTES # (AUTO) 0.5 K/uL (0.8-4.8); LYMPHOCYTES % (AUTO) 5.9 % (20.0-44.0); MEAN CORPUSCULAR HGB CONC 34 g/dl (31.0-36.0); MEAN CORPUSCULAR VOLUME 99 fL (80-96); MONOCYTES # (AUTO) 0.3 K/uL (0.1-1.30); MONOCYTES % (AUTO) 3.7 % (2.0-12.0); NEUTROPHILS # (AUTO) 7.6 K/uL (1.8-8.9); NEUTROPHILS % (AUTO) 90.1 % (43.0-81.0); PLATELET COUNT (AUTO) 264 K/uL (150-450); RED BLOOD CELL COUNT(AUTO) 4.35 MIL/uL (4.5-6.0); WHITE BLOOD COUNT (AUTO) 8.5 K/uL (4.3-11.0)
[2021-07-17 05:18] LABS: CALCIUM, SERUM 7.8 mg/dL (8.5-10.1); CREATININE 0.7 mg/dL (0.6-1.3); MAGNESIUM 2.3 mg/dL (1.8-2.4); POTASSIUM 4.2 mmol/L (3.5-5.1)
--- NOTE | 2021-07-17 06:48 | NUR ---
PT ON BED STILL ON ETT/VENT SETTING PER MD FIO2 85% SPO2 92% SEDATED ON DIPRIVAN @80MCGS/KG/MIN. LEVO @0.01MCG/KG/MIN.STILL ON SINUS ROSY WITH BBB @ 44-54 MD PILLAR WORKER MADE AWARE PT TOLERATING VENT SETTINGS WELL. ALL DUE MEDS GIVEN. KEPT CLEAN AND COMFORTABLE. SAFETY MEASURES IN PLACE. WILL ENDORSE TO AM RN FOR LUCRECIA.
[2021-07-17] MEDS: IV 1/2NS 1000 ML 1,000 ML IV PRN ×2 (06:50→20:07)
--- NOTE | 2021-07-17 07:10 | NUR ---
ICU OPENING NOTES RECEIVED PT IN BED SEDATED. ON ETT/VENT SETTINGS TOLERATING WELL. ON PROPOFOL @80MCG/KG/MIN, LEVOPHED@ 0.01MCG/KG/MIN AND IVF OF 1/2 NS @75ML/HR INFUSING WELL. TELE MONITOR READS SR-SB. BILATERAL SOFT WRIST RESTRAINTS NOTED. CIRCULATION CHECKED. NPO. SAFETY MEASURES IN PLACE. CALL LIGHT WITHIN REACH. BED LOCKED AND IN LOWEST POSITION WITH SIDE RAILS UP X2. WILL CONTINUE TO MONITOR.
[2021-07-17 08:09] LABS: ABG BASE EXCESS -2.7 mmol/L; ABG OXYGEN SATURATION 92.7 % (92.0-98.5); ABG PCO2 38.5 mmHg (35.0-45.0); ABG PH 7.377 (7.350-7.450); ABG PO2 70.9 mmHg (75.0-100.0); AaDO2 495.2 mmHg; COHb 0.2 % (0.5-1.5); MetHb 0.1 % (0.0-1.5); O2Hb 92.4 % (94.0-97.0); PEEP,BG 10 cm H2O; SITE, ABG Right Brachial; VT, ABG 450 mL
[2021-07-17] MEDS: DEXAMETHASONE SOD PHOSPHATE 4 MG/ML VIAL IV SCH (08:17)
[2021-07-17] MEDS: ENOXAPARIN SODIUM 40 MG/0.4 ML DISP.SYRIN SQ SCH ×2 (08:19→20:12)
[2021-07-17] MEDS: CLOTRIMAZOLE 1% 15 GM TUBE TP SCH ×2 (08:22→17:19)
[2021-07-17] MEDS: ENSURE ENLIVE 237 ML LIQUID (VANILLA) PO SCH (09:44)
[2021-07-17 11:41] LABS: C-REACTIVE PROTEIN 2.8 mg/dL (0.0-0.9)
[2021-07-17] MEDS: OSMOLITE 1.2 CAL 1,000 ML LIQUID GT PRN (14:26)
[2021-07-17] MEDS ORDERED: OSMOLITE 1.2 CAL 1,000 ML LIQUID GT PRN (14:30)
--- NOTE | 2021-07-17 19:30 | NUR ---
RN OPENING NOTE REC'D PT IN BED. SEDATED. PT IS [facility]UBATED [facility]. [facility]. AT THE LIP. NO ACUTE DISTRESS NOTED, NO SOB. TOLERATING VENT SETTINGS WELL. AC 28, TIDAL VOL 450 FIO2 95% PEEP 10. PT SINUS ROSY IN THE 50S. PT HAS NGT, PLACEMENT VERIFIED WITH WITNESS, UPFITTER. PT HAS FLEMING, TO GRAVITY WITH GOOD OUTPUT. IV SITES FLUSHED AND INTACT. PICC LINE NOTED WITH GOOD BLOOD RETURN, FLUSHED. ALL NEEDS ATTENDED AT THIS TIME. PT VERBALIZES UNDERSTANDING OF NOT BENDING RLE. ISOLATION PRECAUTIONS IN PLACE FOR POSITIVE COVID RESULT. SAFETY PRECAUTIONS IN PLACE. HOB ELEVATED. SIDE RAILS UP X2. BED LOCKED IN LOWEST POSITION. CALL LIGHT WITHIN REACH. WILL CONT TO MONITOR CLOSELY FOR SAFETY AND CHANGE OF CONDITION.
[2021-07-18] VITALS (84 sets, daily range): BP systolic 80–162; BP diastolic 48–84
[2021-07-18] MEDS: PROPOFOL 100 ML IV PRN ×3 (01:12→06:58)
[2021-07-18] MEDS ORDERED: NOREPINEPHRINE 8MG/250ML RTU 250 ML IV ONE (03:38)
[2021-07-18] MEDS: NOREPINEPHRINE 8 MG in IV NS 0.9% 242 ML IV PRN (03:51)
[2021-07-18 04:32] LABS: BASOPHILS % (AUTO) 0.1 % (0.0-2.0); EOSINOPHILS % (AUTO) 0.1 % (0.0-6.0); HEMATOCRIT 43 % (39-51); HEMOGLOBIN 14.7 g/dL (13.5-17.5); LYMPHOCYTES # (AUTO) 0.5 K/uL (0.8-4.8); LYMPHOCYTES % (AUTO) 5.9 % (20.0-44.0); MEAN CORPUSCULAR HGB CONC 34 g/dl (31.0-36.0); MEAN CORPUSCULAR VOLUME 99 fL (80-96); MONOCYTES # (AUTO) 0.4 K/uL (0.1-1.30); MONOCYTES % (AUTO) 4.1 % (2.0-12.0); NEUTROPHILS # (AUTO) 8.2 K/uL (1.8-8.9); NEUTROPHILS % (AUTO) 89.8 % (43.0-81.0); PLATELET COUNT (AUTO) 301 K/uL (150-450); RED BLOOD CELL COUNT(AUTO) 4.36 MIL/uL (4.5-6.0); WHITE BLOOD COUNT (AUTO) 9.2 K/uL (4.3-11.0)
[2021-07-18 05:12] LABS: CALCIUM, SERUM 7.7 mg/dL (8.5-10.1); CARBON DIOXIDE 24 mmol/L (21-32); CHLORIDE 110 mmol/L (98-107); CREATININE 0.6 mg/dL (0.6-1.3); GLUCOSE 140 mg/dL (74-106); MAGNESIUM 2.2 mg/dL (1.8-2.4); POTASSIUM 4.1 mmol/L (3.5-5.1); SODIUM SERUM 143 mmol/L (136-145); UREA NITROGEN, BLOOD 20 mg/dL (7-18)
--- NOTE | 2021-07-18 07:03 | NUR ---
RN CLOSING NOTE NO SIGNIFICANT CHANGES. PT REMAINS ON VENT TOLERATING SETTINGS, O2SAT 93% WITH FIO2 AT 100% AT THIS TIME. PT TO HAVE ABG LATER. PT REMAINS WITH 80 MCG/KG/MIN DIPRIVAN, 0.45% NS @75ML/HR, AND LEVOPHED AT 0.01 MCG/KG/MIN. ALL IV SITES INTACT. FLEMING IN PLACE. PT BED BATH DONE, TURN/REPOSITIONED Q2H. SAFETY MEASURES IN PLACE. NO DISTRESS NOTED AT THIS TIME. ENDORSED TO DAY SHIFT RN FOR CONTINUATION OF CARE.
--- NOTE | 2021-07-18 07:35 | NUR ---
ICU/RN PT IS INTUBATED ,ON THE VENT AC MODE.FIO2-100%.PEEP-1O.SAT O2-93%.SEDATED WITH DIPRIVAN.ON LEVOPHED DRIP.RIGHT UPPER ARM ARM PICC LINE.NG TUBE INFUSING WITH OSMOLITE ,NO RESIDUAL NOTED.AFEBRILE.NO PAIN REPORTED AT THIS TIME.F/C DRAINING WITH GREEN URINE.BILATERAL SOFT WRIST RESTRAINS ON.SUCTION PROVIDED.REPOSITION FOR COMFORT. LABS REVIEW. NOTIFIED.
--- NOTE | 2021-07-18 07:45 | NUR ---
RCVD PT ORALLY INTUBATED WITH ET TUBE 7.5 SECURED @ 27 CM LIP LINE ON MECHANICAL VENT WITH CHARTED SETTINGS. SUCTIONED SMALL AMOUNT OF WHITE THICK SECRETIONS. CUFF CHECKED BOARD OF DIRECTORS. VENT PLUGGED INTO RED OUTLET , VENT ALARMS SET AND AUDIBLE. AMBU BAG AT BEDSIDE. WILL CONTINUE TO MONITOR PT T/O SHIFT.
[2021-07-18 08:00] LABS: ABG BASE EXCESS -3.6 mmol/L; ABG OXYGEN SATURATION 93.4 % (92.0-98.5); ABG PCO2 31.2 mmHg (35.0-45.0); ABG PH 7.418 (7.350-7.450); AaDO2 608.8 mmHg; COHb 0.1 % (0.5-1.5); MetHb 0.4 % (0.0-1.5); O2Hb 92.9 % (94.0-97.0); SITE, ABG Right Radial
[2021-07-18] MEDS: DEXAMETHASONE SOD PHOSPHATE 4 MG/ML VIAL IV SCH (08:17)
[2021-07-18] MEDS: CLOTRIMAZOLE 1% 15 GM TUBE TP SCH ×2 (08:18→16:22)
[2021-07-18] MEDS: ENOXAPARIN SODIUM 40 MG/0.4 ML DISP.SYRIN SQ SCH ×2 (08:21→21:28)
--- NOTE | 2021-07-18 09:00 | NUR ---
ICU/RN DUE MEDS ARE GIVEN ORDERED. UNABLE TO PROVIDE SEDATION VACATION .PT IS UNSTABLE . ABG DONE ,VENT SETTING CHANGED TO FIO2-90%.PEEP-12.SAT O2-93%. TRIGLYCERIDE LEVEL 405 .WILL D/C DIPRIVAN AND START VERSED AND FENTANYL.
[2021-07-18] MEDS: IV 1/2NS 1000 ML 1,000 ML IV PRN ×2 (09:45→22:45)
[2021-07-18] MEDS: FENTANYL CITRAT IV 2,500 MCG in IV NS 0.9% 200 ML IV PRN (10:10)
[2021-07-18] MEDS: MIDAZOLAM HCL 100 MG in IV NS 0.9% 80 ML IV PRN (10:19)
[2021-07-18] MEDS: OSMOLITE 1.2 CAL 1,000 ML LIQUID GT PRN (14:44)
--- NOTE | 2021-07-18 17:15 | NUR ---
ICU/RN PM CARE PROVIDED.SUCTION PROVIDED.DUE MEDS ARE GIVEN ORDERED.PT IS ON VERSED AND FENTANYL DRIPS .ON LEVOPHED DRIP AND IV FLUIDS ORDERED.AFEBRILE.NO PAIN REPORTED AT THIS TIME.SUCTION PROVIDED.REPOSITION FOR COMFORT.CONTINUE MONITORING.
--- NOTE | 2021-07-18 20:33 | NUR ---
BARREL STAVE INSPECTOR. INITIAL ASSESSMENT. RECEIVED THE PT REST ON THE BED. ORALLY INTUBATED. SEDATED WITH VERSED. ETT 7.5CM,LIP 27CMS, AC 28, TV 450,FIO2 80%, PEEP 12. SAT 94%. NO ACUTE DISTRESS NOTED. REAL ESTATE DIRECTOR SHOWING NSR. IV RT UPPER ARM PICC LINE. IVF 1/2 NS 75 ML/H, LEVOPHED 0.02FENTANYL 50 MCG/KG/MIN, VERSED. 4 MG/H. FC PATENT. URINE DRAINING. NGT INTACT. OSMOLYTE 45 ML/H, HOB ELEVATED. COOKIE SOFT WRIST RESTRAINT CHECKED AND RELEASED. NO INJURY OR REDNESS NOTED.
--- NOTE | 2021-07-18 23:41 | NUR ---
RT pt received on current settings. intubated. ett size 7.5, 27 at lip.vent plugged in to red outlet. alarms on and audible. small secretions suctioned via ett. ambu bag at bedside. no distress at this time. will continue to monitor.
[2021-07-19] VITALS (87 sets, daily range): BP systolic 80–144; BP diastolic 56–83
--- NOTE | 2021-07-19 03:25 | NUR ---
curriculum director. am care given. linen changed. remaining same vent settings on, hob elevated. benjamin soft wrist restraint checked and released. no injury or redness noted.ngt feeding tolerated well. fc patent. urine draining. iv rt upper arm picc line. ivf 1/2ns 75 ml/h.versed 4mg/h, fentanyl 50mcg/kg/min, levophed 0.01mcg/kg/min.
[2021-07-19] MEDS ORDERED: NOREPINEPHRINE 8MG/250ML RTU 250 ML IV ONE (04:17)
[2021-07-19] MEDS: NOREPINEPHRINE 8 MG in IV NS 0.9% 242 ML IV PRN (04:24)
[2021-07-19 05:06] LABS: TRIGLYCERIDES 154 mg/dL (30-150)
[2021-07-19 05:16] LABS: BASOPHILS % (AUTO) 0.1 % (0.0-2.0); EOSINOPHILS % (AUTO) 0.5 % (0.0-6.0); HEMATOCRIT 43 % (39-51); HEMOGLOBIN 14.4 g/dL (13.5-17.5); LYMPHOCYTES # (AUTO) 0.6 K/uL (0.8-4.8); LYMPHOCYTES % (AUTO) 6.9 % (20.0-44.0); MEAN CORPUSCULAR HGB CONC 34 g/dl (31.0-36.0); MEAN CORPUSCULAR VOLUME 100 fL (80-96); MONOCYTES # (AUTO) 0.2 K/uL (0.1-1.30); MONOCYTES % (AUTO) 2.8 % (2.0-12.0); NEUTROPHILS # (AUTO) 7.7 K/uL (1.8-8.9); NEUTROPHILS % (AUTO) 89.7 % (43.0-81.0); PLATELET COUNT (AUTO) 278 K/uL (150-450); RED BLOOD CELL COUNT(AUTO) 4.29 MIL/uL (4.5-6.0); WHITE BLOOD COUNT (AUTO) 8.5 K/uL (4.3-11.0)
--- NOTE | 2021-07-19 05:22 | NUR ---
precision agriculture technician. bp 80/57. levophed increased 0.02mcg/kg/min
[2021-07-19 05:48] LABS: CALCIUM, SERUM 7.4 mg/dL (8.5-10.1); CARBON DIOXIDE 26 mmol/L (21-32); CHLORIDE 108 mmol/L (98-107); CREATININE 0.7 mg/dL (0.6-1.3); GLUCOSE 144 mg/dL (74-106); MAGNESIUM 2.1 mg/dL (1.8-2.4); POTASSIUM 4.5 mmol/L (3.5-5.1); SODIUM SERUM 139 mmol/L (136-145); UREA NITROGEN, BLOOD 28 mg/dL (7-18)
--- NOTE | 2021-07-19 07:20 | NUR ---
RT Pt received orally intubated on mechanical ventilation with noted settings. Vent is plugged into red outlet with BVM by bedside. Alarms are set and audible. No SOB or respiratory distress noted. Addendum: 07/19/21 at 1146 by CHRISTOPHER GROSSMAN RT Amended: Links added.
--- NOTE | 2021-07-19 07:25 | NUR ---
ICU/RN PT IS INTUBATED ON THE VENT .AC MODE ,FIO2-80%,PEEP-12. SAT O2-93 %.SEDATED WITH VERSED AND FENTANYL.ON LEVOPHED DRIP.AFEBRILE.NO PAIN REPORTED AT THIS TIME.NG TUBE INFUSING WITH OSMOLITE AT 45 ML/HR. RESIDUAL 135 ML.FEEDING PLACED ON HOLD.F/C DRAINING WITH RADHA GREEN URINE.SUCTION PROVIDED.REPOSITION FOR COMFORT.LABS REVIEW.MD NOTIFIED.CONTINUE MONITORING.
[2021-07-19 08:07] LABS: ABG BASE EXCESS -4.5 mmol/L; ABG OXYGEN SATURATION 93.7 % (92.0-98.5); ABG PCO2 34.6 mmHg (35.0-45.0); ABG PH 7.376 (7.350-7.450); ABG PO2 74.4 mmHg (75.0-100.0); AaDO2 459.7 mmHg; COHb 0.2 % (0.5-1.5); MetHb 0.3 % (0.0-1.5); O2Hb 93.2 % (94.0-97.0); PEEP,BG 12 cm H2O; SITE, ABG Right Radial; VT, ABG 450 mL
--- NOTE | 2021-07-19 09:15 | NUR ---
ICU/RN DUE MEDS ARE GIVEN ORDERED.ABG DONE.DR CROW SEEN THE PT.UNABLE PROVIDE SEDATION VACATION PT IS STILL ON HIGH FIO2-75%,PEEP-12.CONTINUE MONITORING.
[2021-07-19] MEDS: CLOTRIMAZOLE 1% 15 GM TUBE TP SCH ×2 (09:23→17:10)
[2021-07-19] MEDS: DEXAMETHASONE SOD PHOSPHATE 4 MG/ML VIAL IV SCH (09:23)
[2021-07-19] MEDS: ENOXAPARIN SODIUM 40 MG/0.4 ML DISP.SYRIN SQ SCH ×2 (09:23→20:13)
[2021-07-19] MEDS: MIDAZOLAM HCL 100 MG in IV NS 0.9% 80 ML IV PRN (09:57)
[2021-07-19] MEDS: FENTANYL CITRAT IV 2,500 MCG in IV NS 0.9% 200 ML IV PRN (09:58)
[2021-07-19] MEDS: IV 1/2NS 1000 ML 1,000 ML IV PRN (12:42)
[2021-07-19] MEDS: OSMOLITE 1.2 CAL 1,000 ML LIQUID GT PRN (16:27)
--- NOTE | 2021-07-19 19:30 | NUR ---
RN NOTE RECEIVED PATIENT ON COVID ISOLATION. PATIENT IN BED. SEDATED. ON MECHANICAL VENT , ETT 7.5, AC 28 TV 450 FIO2 75% PEEP 12. PATIENT IS SATING BETWEEN 88-91% BUT MORE CONSISTENT IN 88%, RT INFORMED. NO S/S PAIN NOTED. TELE MONITOR READS SINUS RHYTHM. IN NO APPARENT DISTRESS. IV ACCESS IN LFA#20 PATENT AND SALINE LOCKED WELL BAYRON PICC LINE RUNNING 1/2 NS@75ML/HR, LEVO @0.02MCG, VERSED AT 4, AND FENTANYL AT 50. BILATERAL SOFT WRIST RESTRAINT, NO REDNESS, GOOD CAP REIL, FLEMING CATHETER IS PRESENT, DRAIING TO GRAVITY, URINE IS YELLOW. RIGHT NARE NG TUBE, RESIDUAL 120CC. RUNNING OSMILITE1.2@45ML/HR. BED IS LOW AND LOCKED, HOB ELEVATED IN SEMI FOWLERS, SIDE RIALS UP X3, CALL LIGHT WITHIN REACH. WILL CONTINUE TO MONITOR THROUGHOUT SHIFT.
--- NOTE | 2021-07-19 20:04 | NUR ---
RT pt received on current settings. intubated. ett size 7.5, 27 at [facility].vent plugged in to red outlet. alarms on and audible. small secretions suctioned via ett. ambu bag at bedside. no distress at this time. will continue to monitor. Addendum: 07/20/21 at 0528 by DASIA MEJIAS RT [email or web address]
[2021-07-20] VITALS (85 sets, daily range): BP systolic 88–149; BP diastolic 59–83
[2021-07-20] MEDS: IV 1/2NS 1000 ML 1,000 ML IV PRN ×2 (01:40→14:33)
--- NOTE | 2021-07-20 03:05 | NUR ---
RN NOTE SPOKE WITH RT ABOUT INCREASING FIO2, PATIENTS BEEN SATURATING 88-87%.
[2021-07-20 05:43] LABS: BASOPHILS % (AUTO) 0.1 % (0.0-2.0); EOSINOPHILS % (AUTO) 1.3 % (0.0-6.0); HEMATOCRIT 44 % (39-51); HEMOGLOBIN 14.6 g/dL (13.5-17.5); LYMPHOCYTES # (AUTO) 0.8 K/uL (0.8-4.8); LYMPHOCYTES % (AUTO) 8.2 % (20.0-44.0); MEAN CORPUSCULAR HGB CONC 33 g/dl (31.0-36.0); MEAN CORPUSCULAR VOLUME 101 fL (80-96); MONOCYTES # (AUTO) 0.2 K/uL (0.1-1.30); MONOCYTES % (AUTO) 1.6 % (2.0-12.0); NEUTROPHILS # (AUTO) 8.7 K/uL (1.8-8.9); NEUTROPHILS % (AUTO) 88.8 % (43.0-81.0); PLATELET COUNT (AUTO) 219 K/uL (150-450); RED BLOOD CELL COUNT(AUTO) 4.36 MIL/uL (4.5-6.0); WHITE BLOOD COUNT (AUTO) 9.8 K/uL (4.3-11.0)
[2021-07-20 05:55] LABS: CALCIUM, SERUM 7.4 mg/dL (8.5-10.1); CREATININE 0.7 mg/dL (0.6-1.3); MAGNESIUM 2.1 mg/dL (1.8-2.4); POTASSIUM 4.4 mmol/L (3.5-5.1)
--- NOTE | 2021-07-20 06:38 | NUR ---
RN NOTE ON COVID ISOLATION. SEDATED. ON MECHANICAL VENT , ETT 7.5/, AC 28 TV 450 FIO2 95% PEEP 12. PATIENT CONTINUES TO SATURATE BETWEEN 88-91% DESPITE INCREASE IN FIO2. NO S/S PAIN TELE READS SINUS RHYTHM. NO DISTRESS. [place] PICC LINE RUNNING 1/2 NS@75ML/HR, LEVO @0.02MCG, VERSED AT 4, AND FENTANYL AT 50. BILATERAL SOFT WRIST RESTRAINT WERE REMOVED. FLEMING CATHETER OUTPUT 270CC. RIGHT NARE NG TUBE RUNNING OSMILITE1.2@45ML/HR. BED REMAIN IS LOW AND LOCKED, HOB ELEVATED IN SEMI FOWLERS, SIDE RIALS UP X3, CALL LIGHT WITHIN REACH. WILL ENDORSE TO ONCOMING SHIFT.
--- NOTE | 2021-07-20 08:00 | NUR ---
RN NOTES RECEIVED PATIENT ETT/VENT 7.5, AC 28, TV 450 ,FIO2 95% ,PEEP 12. NO ACUTE RESPIRATORY DISTRESS, O2-91%. PATIENT SEDATED ON VERSED 4MG/ML, FENTANYL 50MCG/KG/HR. PATIENT GETTING ECHO US AT THIS TIME. B[place] PICC LINE RUNNING 1/2 NS@75ML/HR, LEVO @0.02MCG, BILATERAL SOFT WRIST RESTRAINT WERE REMOVED. FLEMING CATHETER DRAINING VIA GRAVITY. RIGHT NARE NG TUBE RUNNING OSMILITE1.2@45ML/HR RECHECKED RESIDUAL, HOB ELEVATED FOR ASPIRATION PRECAUTION, WILL FOLLOW UP.
[2021-07-20 08:27] LABS: ABG BASE EXCESS -0.5 mmol/L; ABG OXYGEN SATURATION 91.8 % (92.0-98.5); ABG PCO2 42.9 mmHg (35.0-45.0); ABG PH 7.379 (7.350-7.450); ABG PO2 66.1 mmHg (75.0-100.0); AaDO2 567.8 mmHg; COHb 0.3 % (0.5-1.5); MetHb 0.4 % (0.0-1.5); O2Hb 91.2 % (94.0-97.0); SITE, ABG Right Radial
--- NOTE | 2021-07-20 08:29 | NUR ---
RN NOTES GET TO ORDER PER [employer] Dr CROW NO SEDATION VACATION TODAY, TITRATE UP SEDATION. ORDER TAKEN AND CARRIED OUT.
--- NOTE | 2021-07-20 08:36 | NUR ---
RT PER DR CROW PEEP INCREASED TO 14, FIO2 TITRATED TO 90% Addendum: 07/20/21 at 0837 by WOLF WHITE RT Amended: Links added.
[2021-07-20] MEDS: DEXAMETHASONE SOD PHOSPHATE 4 MG/ML VIAL IV SCH (09:28)
[2021-07-20] MEDS: ENOXAPARIN SODIUM 40 MG/0.4 ML DISP.SYRIN SQ SCH ×2 (09:29→20:03)
[2021-07-20] MEDS: CLOTRIMAZOLE 1% 15 GM TUBE TP SCH ×2 (09:32→16:22)
[2021-07-20] MEDS: MIDAZOLAM HCL 100 MG in IV NS 0.9% 80 ML IV PRN (14:03)
[2021-07-20] MEDS ORDERED: OSMOLITE 1.2 CAL 1,000 ML LIQUID GT PRN (16:30)
--- NOTE | 2021-07-20 17:45 | NUR ---
rn notes held levophed infusion, bp-109/61, p-92. will follow up.
--- NOTE | 2021-07-20 17:58 | NUR ---
RT PATIENT REMAINS ORALLY INTUBATED ON [facility] VENT IN CRITICAL CONDITION. FIO2 AND PEEP INCREASED TO 14 AND FIO2 95% PER DR PELEG. LUCERO BAG AT HOB. Addendum: 07/20/21 at 1800 by WOLF WHITE RT Amended: Links added.
--- NOTE | 2021-07-20 18:30 | NUR ---
RN NOTES PATIENT PM CARE DONE, SECTION, NO ACUTE RESPIRATORY DISTRESS, DUE MEDICATION ADMINISTERED. ASSIST TURN AND REPOSTION Q 2 HR. URINE OUTPUT IS 350 ML. RUNNING OSMOLITE 1.2 @45 ML/HR. KEEP HOB ELEVATED. .ON RIGHT PICC LINE INFUSING VERSED 5MG/ML. FENTANYL 75ML/HR. INTACT. ENDORSED ONCOMING NURSE FOLLOW PLAN OF CARE.
--- NOTE | 2021-07-20 19:45 | NUR ---
RN NOTES RECEIVED PATIENT ON STRICTLY ON DROPLET PRECAUTION DUE TO COVID 19 PNA. PATIENT IS ORALLY INTUBATED WITH ETT 7.5 AND 27 CM AT LIP WITH AC 28 TV 450 FIO2 95% AND PEEP 14. TOLERATED WELL SATURATION 94%. SEDATED WITH VERSED AND FENTANYL SR ON MONITOR HR ON 80'S- 90'S. NO APPARENT RESP. DISTRESS. RIGHT NGTF OSMOLITE TOLERATED WELL WITH < 10 CC RESIDUAL. KEEP HOB ELEVATED. IV SITE ON BAYRON PICC LINE AND ;FA ARE INTACT AND PATENT. RUNNING WITH 1/2 NS @ 75 ML/HR, VERSED AND FENTANYL TITRATED ORDERED. KEPT PT CLEAN AND COMFORTABLE IN BED. OFFLOADED EXT WITH PILLOWS.
[2021-07-20] MEDS: FENTANYL CITRAT IV 2,500 MCG in IV NS 0.9% 200 ML IV PRN (20:20)
[2021-07-21] VITALS (38 sets, daily range): BP systolic 84–113; BP diastolic 61–74
[2021-07-21] MEDS ORDERED: MIDAZOLAM 50 MG/10 ML VIAL ONE (00:43)
[2021-07-21] MEDS: IV 1/2NS 1000 ML 1,000 ML IV PRN ×2 (01:01→15:06)
--- NOTE | 2021-07-21 01:45 | NUR ---
RT pt received on mechanical vent, orally intubated. vent plugged in to red outlet. ambu bag at bedside. no sob, no distress. continue to monitor
[2021-07-21 04:22] LABS: EOSINOPHILS % (AUTO) 0.7 % (0.0-6.0); HEMATOCRIT 44 % (39-51); HEMOGLOBIN 14.6 g/dL (13.5-17.5); LYMPHOCYTES # (AUTO) 0.4 K/uL (0.8-4.8); LYMPHOCYTES % (AUTO) 3.2 % (20.0-44.0); MEAN CORPUSCULAR HGB CONC 33 g/dl (31.0-36.0); MEAN CORPUSCULAR VOLUME 101 fL (80-96); MONOCYTES # (AUTO) 0.2 K/uL (0.1-1.30); MONOCYTES % (AUTO) 1.9 % (2.0-12.0); NEUTROPHILS # (AUTO) 10.7 K/uL (1.8-8.9); NEUTROPHILS % (AUTO) 94.2 % (43.0-81.0); PLATELET COUNT (AUTO) 163 K/uL (150-450); RED BLOOD CELL COUNT(AUTO) 4.38 MIL/uL (4.5-6.0); WHITE BLOOD COUNT (AUTO) 11.4 K/uL (4.3-11.0)
[2021-07-21 04:36] LABS: CALCIUM, SERUM 7.6 mg/dL (8.5-10.1); CARBON DIOXIDE 26 mmol/L (21-32); CHLORIDE 106 mmol/L (98-107); CREATININE 0.7 mg/dL (0.6-1.3); GLUCOSE 115 mg/dL (74-106); MAGNESIUM 2.2 mg/dL (1.8-2.4); PHOSPHORUS 3.2 mg/dL (2.5-4.9); POTASSIUM 5.3 mmol/L (3.5-5.1); SODIUM SERUM 138 mmol/L (136-145); UREA NITROGEN, BLOOD 38 mg/dL (7-18)
[2021-07-21] MEDS: MIDAZOLAM HCL 100 MG in IV NS 0.9% 80 ML IV PRN (05:24)
--- NOTE | 2021-07-21 05:30 | NUR ---
RN NOTE PATIENT SATURATION IS BEEN ON 86-88% RT TITRATED FIO2 BACK AT 95%. SATURATION REMAINED BETWEEN 90-93%. PATIENT IS SEDATED ETT AND VENT SETTING TOLERATED WELL. NO RESPIRATORY DISTRESS. AFEBRILE. VSS WITHOUT PRESSORS. IV VERSED AND FENTANYL DRIP KEPT THE SAME RATE. SUCTIONED AND ORAL CARE PROVIDED FREQUENTLY. KEPT PT CLEAN AND COMFORTABLE IN BED.
--- NOTE | 2021-07-21 05:38 | NUR ---
RN NOTES STARTED A NEW BAG OF VERSED AT 0524 AM WASTED 5 CC WITNESSED BY CHARGE NURSE ED, VERSED VIAL IS UNAVAILABLE IN ICU PHYXIS. CHARGE NURSE TOOK MEDICINE FROM ER PHYXIS AND MIXED IN NS ORDERED.
--- NOTE | 2021-07-21 07:10 | NUR ---
UMBRELLA FRAME MAKER NOTES RECEIVED PT SEDATED. ORALLY INTUBATED WITH ETT 7.5 AND 27 CM AT LIP WITH AC: 28, TV: 450, FIO2: 95% AND PEEP 14. TOLERATED WELL SATURATION @88-91%. SEDATED WITH VERSED AND FENTANYL. SR ON MONITOR HR ON 90'S. NO SOB OR ANY RESPIRATORY DISTRESS. RIGHT NARE GT INTACT AND PATENT. FEEDING OF OSMOLITE 1.2 @45 TOLERATED WELL. LESS THAN 10CC RESIDUAL. HOB ELEVATED. IV ACCESS ON BAYRON PICC LINE AND LFA BOTH INTACT AND PATENT. IVF OF 1/2 NS @ 75 ML/HR. SAFETY MEASURES IN PLACE. BED LOCKED AND IN LOWEST POSITION WITH SIDE RAILS UP. WILL CONTINUE TO MONITOR.
[2021-07-21] MEDS: DEXAMETHASONE SOD PHOSPHATE 4 MG/ML VIAL IV SCH (08:21)
[2021-07-21] MEDS: ENOXAPARIN SODIUM 40 MG/0.4 ML DISP.SYRIN SQ SCH ×2 (08:27→21:09)
[2021-07-21] MEDS: CLOTRIMAZOLE 1% 15 GM TUBE TP SCH ×2 (08:27→17:14)
[2021-07-21 14:07] LABS: ABG BASE EXCESS 2.1 mmol/L; ABG OXYGEN SATURATION 85.9 % (92.0-98.5); ABG PCO2 53.5 mmHg (35.0-45.0); ABG PH 7.351 (7.350-7.450); ABG PO2 51.8 mmHg (75.0-100.0); AaDO2 571.4 mmHg; COHb 0.4 % (0.5-1.5); MetHb 0.2 % (0.0-1.5); O2Hb 85.4 % (94.0-97.0); PEEP,BG 14 cm H2O; SITE, ABG Right Radial; VENT MODE, BG AC - IE RATION 2:1; VT, ABG 450 mL
[2021-07-21] MEDS: OSMOLITE 1.2 CAL 1,000 ML LIQUID GT PRN (14:07)
[2021-07-21 16:14] LABS: ABG OXYGEN SATURATION 91.1 % (92.0-98.5); ABG PCO2 49.7 mmHg (35.0-45.0); ABG PH 7.301 (7.350-7.450); ABG PO2 66.5 mmHg (75.0-100.0); AaDO2 560.5 mmHg; COHb 0.3 % (0.5-1.5); MetHb 0.3 % (0.0-1.5); O2Hb 90.6 % (94.0-97.0); PEEP,BG 16 cm H2O; SITE, ABG Right Radial; VENT MODE, BG AC - (IE RATIO 2:1); VT, ABG 450 mL
--- NOTE | 2021-07-21 18:48 | NUR ---
ICU CLOSING NOTES NO SIGNIFICANT CHANGES THROUGHOUT THE SHIFT. SEDATED ON VERSED@5, FENTANYL@75. TOLERATING VENT SETTINGS WELL. ALL DUE MEDS GIVEN. KEPT CLEAN AND COMFORTABLE. SAFETY MEASURES IN PLACE. WILL ENDORSE TO NIGHT RN FOR LUCRECIA.
--- NOTE | 2021-07-21 19:35 | NUR ---
RN OPENING NOTE REC'D PT IN BED. SEDATED. PT IS ORALLY INTUBATED ON [facility]IL[facility]. 7.03/27 AT THE LIP. NO ACUTE DISTRESS NOTED, NO SOB. TOLERATING VENT SETTINGS WELL. AC 28, TIDAL VOL 450 FIO2 95% PEEP 5. ON TELE PRESENTS WITH SINUS RHYTHM, SINUS TACHYCARDIA. PT HAS NGT, PLACEMENT VERIFIED. TUBE FEEDING RUNNING, 20 RESIDUAL, GTF RATE DECREASED. PT HAS FLEMING TO GRAVITY, TEA COLOR. IV SITES FLUSHED AND INTACT. PICC LINE NOTED WITH GOOD BLOOD RETURN, FLUSHED. ANO S/S OF PAIN NOTED, TOLERATING MEDS WELL. VERSED AT 5MG/HR FENTANYL @75 MCG/HR, RESTRAINTS OFF AT THIS TIME. ISOLATION PRECAUTIONS IN PLACE FOR POSITIVE COVID RESULT. SAFETY PRECAUTIONS IN PLACE. HOB ELEVATED. SIDE RAILS UP X2. BED LOCKED IN LOWEST POSITION. CALL LIGHT WITHIN REACH. WILL CONT TO MONITOR CLOSELY FOR SAFETY AND CHANGE OF CONDITION.
--- NOTE | 2021-07-21 19:46 | NUR ---
RT NOTE LATE ENTRY: Pt rec'd orally intubated via ETT sz #7.5 secured at 26cm at the lipline. Pt on [facility] vent on AC mode settings as charted. ETT is patent and secured. Pt sx'd for thick mod amt of blood tinged secretions. Alarms are set and audible. Ambu bag bedside. Vent plugged into red outlet. Will continue to monitor closely. Addendum: 07/22/21 at 0410 by SEBASTIEN HOYT RT Amended: Links added.
[2021-07-22] VITALS (62 sets, daily range): BP systolic 94–123; BP diastolic 56–79
[2021-07-22] MEDS: IV 1/2NS 1000 ML 1,000 ML IV PRN ×2 (02:05→18:06)
[2021-07-22] MEDS: FENTANYL CITRAT IV 2,500 MCG in IV NS 0.9% 200 ML IV PRN ×2 (02:50→21:36)
[2021-07-22] MEDS: MIDAZOLAM HCL 100 MG in IV NS 0.9% 80 ML IV PRN ×2 (02:51→18:09)
--- NOTE | 2021-07-22 03:36 | NUR ---
RT NOTE LATE ENTRY: PEEP INCREASED TO 20, FIO2 INCREASED TO 100% PER MD ORDERS DUE TO LOW O2 SATURATION. WAITING ON CHEST X-RAY RESULTS. WILL CONTINUE TO MONITOR CLOSELY Addendum: 07/22/21 at 0410 by SEBASTIEN HOYT RT Amended: Links added.
--- NOTE | 2021-07-22 03:47 | NUR ---
RN NOTE: DESAT @0315 PT O2 SATURATION NOTED TO BE DROPPING TO 60-70S PT RESPIRATORY RATE TO BE IN THE 30S ON THE VENT. CALLED RT, NOTIFIED MD BAILEY OF PT CONDITION. ORDERS TO FOR STAT CXR AND ABG CARRIED OUT, PEEP TO BE INCREASED TO 20 AT THIS TIME,WITH RT AT BEDSIDE
[2021-07-22 03:57] LABS: ABG BASE EXCESS -7.8 mmol/L; ABG OXYGEN SATURATION 82.7 % (92.0-98.5); ABG PCO2 48.5 mmHg (35.0-45.0); ABG PH 7.231 (7.350-7.450); ABG PO2 51.8 mmHg (75.0-100.0); AaDO2 612.7 mmHg; COHb 0.5 % (0.5-1.5); MetHb 0.2 % (0.0-1.5); O2Hb 82.1 % (94.0-97.0); PEEP,BG 20 cm H2O; SITE, ABG Right Radial; VENT MODE, BG AC I:E 2:1; VT, ABG 450 mL
--- NOTE | 2021-07-22 04:10 | NUR ---
RT NOTE ABG TAKEN AND CRITICAL RESULTS REPORTED TO MD. WILL CONTINUE TO MONITOR CLOSELY.
--- NOTE | 2021-07-22 04:15 | NUR ---
RN NOTE: ABG RESULTS SENT TO MD, KEEP PEEP AT 20, NO NEW ORDERS, WILL CONT TO MONITOR SOUS CHEF KITCHEN MANAGER AWARE
--- NOTE | 2021-07-22 04:20 | NUR ---
RN NOTE: RX VERSED WASTED 15 ML VERSED @0251, WITNESSED BY KAITLIN GUEVARA RN. DOCUMENTED ON CONTROLLED DRUG ADMINISTRATION RECORD IN NARCOTIC HARD COPY BINDER, IN MEDICATION ROOM. NURSE WOUNDBREANA MADE AWARE
[2021-07-22 04:33] LABS: BASOPHILS % (AUTO) 0.1 % (0.0-2.0); HEMATOCRIT 45 % (39-51); HEMOGLOBIN 15.1 g/dL (13.5-17.5); LYMPHOCYTES # (AUTO) 0.3 K/uL (0.8-4.8); LYMPHOCYTES % (AUTO) 3.9 % (20.0-44.0); MEAN CORPUSCULAR HGB CONC 33 g/dl (31.0-36.0); MEAN CORPUSCULAR VOLUME 102 fL (80-96); MONOCYTES # (AUTO) 0.1 K/uL (0.1-1.30); MONOCYTES % (AUTO) 1.5 % (2.0-12.0); NEUTROPHILS # (AUTO) 7.5 K/uL (1.8-8.9); NEUTROPHILS % (AUTO) 93.5 % (43.0-81.0); PLATELET COUNT (AUTO) 141 K/uL (150-450); RED BLOOD CELL COUNT(AUTO) 4.45 MIL/uL (4.5-6.0)
[2021-07-22 05:07] LABS: CALCIUM, SERUM 8.4 mg/dL (8.5-10.1); CARBON DIOXIDE 25 mmol/L (21-32); CHLORIDE 105 mmol/L (98-107); CREATININE 0.8 mg/dL (0.6-1.3); GLUCOSE 114 mg/dL (74-106); MAGNESIUM 2.4 mg/dL (1.8-2.4); PHOSPHORUS 4.2 mg/dL (2.5-4.9); SODIUM SERUM 137 mmol/L (136-145); UREA NITROGEN, BLOOD 48 mg/dL (7-18)
--- NOTE | 2021-07-22 05:12 | NUR ---
RN NOTE PHOSPHORUS NOTED 8.5, TRENDING DOWN
--- NOTE | 2021-07-22 06:17 | NUR ---
RN NOTE- PNEUMOTHORAX @0501 , FROM RADIOLOGY DR GATITO FLORES NOTIFIED RESULTS TO ME VIA PHONE CALL REGARDING LARGE RIGHT PNEUMOTHORAX NOTED @0518-NOTIFIED MD BAILEY REGARDING CXR RESULTS, WITH MD FLORES RECOMMENDATION TO PLACE RIGHT SIDED CHEST TUBE. LYNN SAYS HE WILL GET IN CONTACT WITH ER MD @0519 CALLED PT DAUGHTER ALTON, REGARDING EMERGENT SITUATION X3 NO ANSWER. LEFT A MESSAGE TO CALL BACK IMMEDIATELY. NO OTHER CONTACT AVAILABLE. @0526 ER MD MOURA ARRIVED TO ICU, IN PT ROOM @0532 ENDED @0620 WITH 24F RIGHT SIDED CHEST TUBE UTILIZED, PLACED TO SUCTION. O2 SATURATION BEGINS TO INCREASE FROM 79% TO 84% STAT CHEST XRAY ORDERED. CALLED DAUGHTER TY TWO MORE TIMES, STILL NO ANSWER. MD MOURA REMAINS WITH CONSENT FOR IN ED FOR RIGHT SIDED CHEST TUBE, TO BE SIGNED WITH ANOTHER MD. WILL HAVE SOMEONE BRING IT UP LATER. CHEST TUBE DRESSING SECURED AND INTACT, AT THIS TIME, PT O2 SATURATION IS 90%.
[2021-07-22] MEDS ORDERED: INSULIN REGULAR, HUMAN 100 UNIT/ML 10 ML VIAL IV ONE (07:00)
[2021-07-22] MEDS ORDERED: DEXTROSE 50%-WATER 50 ML DISP.SYRIN IVP ONE ×2 (07:00→10:30)
--- NOTE | 2021-07-22 07:22 | NUR ---
RN CLOSING NOTE NOTIFIED MD MAKEUP SALES ADVISOR REGARDING POTASSIUM OF 6.0, ORDERS FOR REGULAR INSULIN 10 UNITS IV ONCE AND D50 IV ONCE, WITH RECHECK POTASSIUM @0800 CARRIED OUT. CONSENT FROM CHEST TUBE INSERTION PLACED IN CHART. PT REMAINS WITH VSS. NO DISTRESS NOTED, O2 SAT 94%. STILL NO CALL BACK FROM DAUGHTER. ENDORSED CONTINUATION OF CARE TO DAY SHIFT CARON CARDONA. Addendum: 07/22/21 at 0735 by EVI HARPER RN WAS NOT ABLE TO TURN/REPOSITION CHANGE LINEN/BED BATH FOR PT DUE TO O2 SAT DROPPING WITH EACH ATTEMPT
--- NOTE | 2021-07-22 08:00 | NUR ---
RN NOTES RECEIVED PATIENT STIL CRITICAL ANSTABLE, FULL CODE, WAS INSERTED CHEST TUBE PIANO PROFESSOR BECAUSE OF EFFUSION OF LUNGS Status post median sternotomy, heart surgery and tubes and lines as indicated above 2. Interval decrease in the previously noted large right pneumothorax with small right pneumothorax remaining 3. Unchanged pneumomediastinum 4. Unchanged diffuse bilateral interstitial infiltrates with predominance in the right mid and left lower lung 5. Mild cardiomegaly and atherosclerotic vascular disease PATIENT TOLERATING ett SETTING 100%FI02, PEEP-20, KEEP HOB ELEVATED FOR ASPIRATION PRECAUTION,. HEART MONITOR SHOWS SR. PATIENT SEDATED VERSED 6MG/ML/HR, AND FENTANYL 100MCG/KG/HR ON RIGHT PICC LINE INTACT. FLEMING DRAINING DARK TEA COLOR OUTPUT. NO SEDATION VACATION VIA DR CROW, RECHECKED RESIDUAL 40CC, INFUSING OSMOLITE 1.2 @ 45ML/HR INTACT. ASSIST TURN AND REPOSTION Q 2 HR. WILL FOLLOW UP.
[2021-07-22 08:26] LABS: ABG BASE EXCESS -10.6 mmol/L; ABG OXYGEN SATURATION 92.9 % (92.0-98.5); ABG PCO2 49.3 mmHg (35.0-45.0); ABG PH 7.178 (7.350-7.450); ABG PO2 76.6 mmHg (75.0-100.0); AaDO2 587.1 mmHg; COHb 0.1 % (0.5-1.5); MetHb 0.3 % (0.0-1.5); O2Hb 92.5 % (94.0-97.0); SITE, ABG Right Radial; VENT MODE, BG ac28 450 +20 100%
--- NOTE | 2021-07-22 08:30 | NUR ---
RN NOTES LAB VALUES KCL -IS 6.O ADMINISTERED SCHEDULED MEDICATION, BS-116MG/DL.
[2021-07-22] MEDS: DEXAMETHASONE SOD PHOSPHATE 4 MG/ML VIAL IV SCH (10:21)
[2021-07-22] MEDS: ENOXAPARIN SODIUM 40 MG/0.4 ML DISP.SYRIN SQ SCH ×2 (10:22→21:23)
[2021-07-22] MEDS: CLOTRIMAZOLE 1% 15 GM TUBE TP SCH ×2 (10:23→17:20)
[2021-07-22] MEDS ORDERED: Calcium Gluconate 1GM/10ML 4.65 MEQ in IV D5W 50 ML IV ONE (11:00)
[2021-07-22] MEDS ORDERED: SODIUM POLYSTYRENE SULFONATE 15 G/60 ML BOTTLE NG ONE (11:00)
--- NOTE | 2021-07-22 12:50 | NUR ---
rn notes bs167 mg/dl, suction, mouth care done running osmolite 1.2 @45 ml/hr. keep hob elevated. will follow up.
[2021-07-22 15:18] LABS: ABG BASE EXCESS -9.5 mmol/L; ABG OXYGEN SATURATION 92.1 % (92.0-98.5); ABG PCO2 62.4 mmHg (35.0-45.0); ABG PH 7.136 (7.350-7.450); ABG PO2 71.9 mmHg (75.0-100.0); AaDO2 578.7 mmHg; COHb 0.2 % (0.5-1.5); MetHb 0.5 % (0.0-1.5); O2Hb 91.5 % (94.0-97.0); SITE, ABG Right Radial; VENT MODE, BG AC28 450 100% +20
--- NOTE | 2021-07-22 18:30 | NUR ---
RN NOTES PATIENT STILL CRITICAL,SEDATED WITH VERSED 6MG/ML/HR, FENTANYL 100MCG/KG/HR ON BAYRON PICC LINE INTACT. ALSO INFUSING NS @75ML/HT. BS-157MG/DL, CHEST TUBE HAS BLOODY LEAKAGE APPLIED MORE PRESSURE ,OUTPUT WAS 54ML, POOR URINE OUTPUT 275ML. PATIENT HAS EDEMA BILATERAL ARMS, AND SACRAL AREA. ASSIST TURN AND REPOSTION Q 2 HR, NGT RUNNING @45CC/HR KEEP HOB ELEVATED FOR ASPIRATION PRECAUTION, PM CARE DONE, DUE MEDICATION ADMINISTERED, SUCTION. ENDORSED ONCOMING NURSE FOLLOW PLAN OF CARE.
[2021-07-22] MEDS: OSMOLITE 1.2 CAL 1,000 ML LIQUID GT PRN (18:37)
--- NOTE | 2021-07-22 20:00 | NUR ---
RN NOTE PATIENT IN BED WITH HEAD OF BED ELEVATED. ON VENT TOLERATING SETTINGS WELL. SEDATED WITH VERSED 6MG/ML/HR AND FENTANYL 100MCG/KG/HR ON BAYRON PICC LINE. NS @75ML/HR RUNNING. NO SIGNS OF INFILTRATION. CHEST TUBE IN PLACE, DRESSING SECURED. FLEMING CATHETER DRAINING TEA COLOR URINE. NOTED WITH EDEMA BILATERAL ARMS AND SACRAL AREA. NGT RUNNING OSMOLITE @45CC/HR KEEP, WITH 30 RESIDUAL NOTED. BED LOCKED AND IN LOWEST POSITION. CALL LIGHT WITHIN REACH.
[2021-07-23] VITALS (42 sets, daily range): BP systolic 92–147; BP diastolic 54–72
[2021-07-23 04:54] LABS: BASOPHILS % (AUTO) 0.1 % (0.0-2.0); EOSINOPHILS % (AUTO) 0.2 % (0.0-6.0); HEMATOCRIT 44 % (39-51); HEMOGLOBIN 14.5 g/dL (13.5-17.5); LYMPHOCYTES # (AUTO) 0.2 K/uL (0.8-4.8); MEAN CORPUSCULAR HGB CONC 33 g/dl (31.0-36.0); MEAN CORPUSCULAR VOLUME 102 fL (80-96); MONOCYTES # (AUTO) 0.1 K/uL (0.1-1.30); MONOCYTES % (AUTO) 1.7 % (2.0-12.0); PLATELET COUNT (AUTO) 115 K/uL (150-450); RED BLOOD CELL COUNT(AUTO) 4.28 MIL/uL (4.5-6.0); WHITE BLOOD COUNT (AUTO) 8.3 K/uL (4.3-11.0)
[2021-07-23] MEDS: MIDAZOLAM HCL 100 MG in IV NS 0.9% 80 ML IV PRN ×2 (05:02→18:23)
[2021-07-23 05:14] LABS: CREATINE KINASE, TOTAL 37 U/L (39-308); FERRITIN 443 ng/mL (8-388)
[2021-07-23 05:17] LABS: ALANINE AMINOTRANSFERASE 78 U/L (12-78); ALKALINE PHOSPHATASE 115 U/L (46-116); ASPARTATE AMINOTRANSFERASE 45 U/L (15-37); BILIRUBIN,TOTAL 1.2 mg/dL (0.2-1.0); CALCIUM, SERUM 8.5 mg/dL (8.5-10.1); CARBON DIOXIDE 24 mmol/L (21-32); CHLORIDE 103 mmol/L (98-107); CREATININE 1.3 mg/dL (0.6-1.3); GLUCOSE 121 mg/dL (74-106); MAGNESIUM 2.7 mg/dL (1.8-2.4); PHOSPHORUS 5.8 mg/dL (2.5-4.9); SODIUM SERUM 136 mmol/L (136-145); TOTAL PROTEIN, SERUM 5.2 g/dL (6.4-8.2); UREA NITROGEN, BLOOD 70 mg/dL (7-18)
[2021-07-23 05:33] LABS: POTASSIUM 6.5 mmol/L (3.5-5.1)
[2021-07-23] MEDS ORDERED: SODIUM POLYSTYRENE SULFONATE 15 G/60 ML BOTTLE NG ONE (06:00)
[2021-07-23] MEDS: IV 1/2NS 1000 ML 1,000 ML IV PRN ×2 (06:23→18:19)
--- NOTE | 2021-07-23 06:57 | NUR ---
RN NOTE PATIENT IN BED WITH HEAD OF BED ELEVATED. ON VENT TOLERATING SETTINGS WELL. AC 28, TIDAL VOL 450, FIO2 70%, PEEP 20. SEDATED WITH VERSED 6MG/ML/HR AND FENTANYL 100MCG/KG/HR ON BAYRON PICC LINE. NS @75ML/HR RUNNING. NO SIGNS OF INFILTRATION. CHEST TUBE IN PLACE OUTPUT 76CC.. FLEMING CATHETER DRAINING TEA COLOR URINE OUTPUT POOR 250. NGT RUNNING OSMOLITE @45CC/HR WITH 20CC RESIDUAL NOTED. BED LOCKED AND IN LOWEST POSITION. WILL ENDORSE TO AM SHIFT. Addendum: 07/23/21 at 701 by ROBB FISHER RN POTASSIUM LVL 6.5, PAULA KOHLER NOTIFIED WITH ORDERS FOR KAYEXALATE 30GM X1. NOTED AND CARRIED OUT. MED STILL UNAVAILABLE. Addendum: 07/23/21 at 721 by ROBB FISHER RN MED STILL UNAVAILABLE. CALLED PHARMACY MULTIPLE TIMES, NO RESPONSE. ENDORSED TO AM SHIFT.
--- NOTE | 2021-07-23 07:45 | NUR ---
RN NOTES CHEST X-RAY: Stable right chest tube with a stable, small right pneumothorax. Extensive patchy infiltrates in both lungs. Infiltrates on the right have mildly increased. Subcutaneous emphysema over both sides of the lower neck. Interval decrease in subcutaneous emphysema over the right chest. Moderate residual remains.
--- NOTE | 2021-07-23 08:00 | NUR ---
rn notes Patient kcl level 6.5 . administered Kayexalate as prescribed, bs-123mg/dl, also administered insulin 10u, and dextrose 50x1 iv push. according ABG level per pile driver operator Dr Prince order increase fio2-80%, peep is 20. patient still sedated with versed 6mg/ml/hr, and fentanyl 100mcg/kg/kr. rechecked residual 30 cc, Lim catheter draining with dark tea color output. assist turn and reposition q 2 hr. patient has generalized edema, chest tube water chamber bobbling added more tape pressure . Md" aware of. no sedation vacation today via Dr Wynne. will follow up.
[2021-07-23] MEDS: DEXAMETHASONE SOD PHOSPHATE 4 MG/ML VIAL IV SCH (08:08)
[2021-07-23] MEDS: ENOXAPARIN SODIUM 40 MG/0.4 ML DISP.SYRIN SQ SCH ×2 (08:16→20:28)
[2021-07-23] MEDS: CLOTRIMAZOLE 1% 15 GM TUBE TP SCH ×2 (08:16→17:06)
[2021-07-23] MEDS ORDERED: DEXTROSE 50%-WATER 50 ML DISP.SYRIN IVP ONE (08:30)
[2021-07-23] MEDS ORDERED: INSULIN REGULAR, HUMAN 100 UNIT/ML 10 ML VIAL IV ONE (08:30)
[2021-07-23 08:41] LABS: ABG BASE EXCESS -5.3 mmol/L; ABG OXYGEN SATURATION 86.6 % (92.0-98.5); ABG PCO2 71.3 mmHg (35.0-45.0); ABG PH 7.163 (7.350-7.450); ABG PO2 56.2 mmHg (75.0-100.0); AaDO2 366.3 mmHg; COHb 0.6 % (0.5-1.5); MetHb 0.4 % (0.0-1.5); O2Hb 85.7 % (94.0-97.0); SITE, ABG Right Radial
[2021-07-23] MEDS ORDERED: Calcium Gluconate 1GM/10ML 4.65 MEQ in IV D5W 50 ML IV ONE (11:00)
[2021-07-23] MEDS ORDERED: NEPRO 1,000 ML BOTTLE GT SCH (11:30)
--- NOTE | 2021-07-23 11:46 | NUR ---
RN NOTES BS-178MG/DL, PATIENT HAS NO ACUTE RESPIRATORY DISTRESS, SEEN HOSPITALIST Dr ADAME AND GET NEW ORDER DULCOLAX BID. ORDER TAKEN AND CARRIED OUT.
--- NOTE | 2021-07-23 12:13 | NUR ---
rn notes get call from patients family and asking update about patient condition. per wants to remove tubing, notified hospitalist Dr Renae to call family back.
--- NOTE | 2021-07-23 14:00 | NUR ---
rn notes patient was bleeding from chest tube side, changed dressing, dry up with sterile dressing , no redness noted, applied occlusive dressing,applied dry gauze, and secured with special microfoam tape. assist patient turn on left side using pillows, patient has no bowel movement, keep hob elevated . will follow up.
[2021-07-23] MEDS: NEPRO 1,000 ML BOTTLE NG SCH (16:59)
[2021-07-23] MEDS: BISACODYL (5 MG) 5 MG TABLET.DR PO SCH (17:05)
[2021-07-23 18:10] LABS: BILIRUBIN,URINE NEGATIVE (NEGATIVE); COLOR,URINE DARK YELLOW (YELLOW); LEUKOCYTE ESTERASE ,URINE NEGATIVE (NEGATIVE); NITRITE, URINE NEGATIVE (NEGATIVE); PROTEIN,URINE 30 mg/dl (NEGATIVE); UGLUCOSE NEGATIVE (NEGATIVE)
[2021-07-23 18:13] LABS: BACTERIA,URINE Moderate /HPF (None Seen); COARSE GRANULAR CASTS,URINE Few /LPF (None Seen); RBC,URINE 0-2 /HPF (0-2); SQUAMOUS EPITHELIAL CELL,UR Few /HPF (None Seen); WBC,URINE 0-2 /HPF (0-3)
--- NOTE | 2021-07-23 18:34 | NUR ---
RN NOTES PATIENT DUE MEDICATION ADMINISTERED, PM CARE DONE, SUCTION. PATIENT CONDITION STILL CRITICAL, NO CHANGES. PATIENT SEDATED WITH VERSED 6MG/ML, AND FENTANYL 100 MCG/KG/HR. FLEMING OUTPUT IS 410ML, CHEST TUBE 170ML, AND WATER CHAMBER IS MD CAROLA AWARE OF. ASSIST TURN AD REPOSTION Q 2 HR. PATIENT TOLERATING OGT FEEDING WELL @45CC/HR. KEEP HOB ELEVATED. ENDORSED ONCOMING NURSE FOLLOW PLAN OF CARE.
--- NOTE | 2021-07-23 19:30 | NUR ---
RN OPENING NOTES: RECEIVED SEDATED PT IN BED IN NO S/SX OF ACUTE DISTRESS. NO SOB NOTED. PATIENT'S BREATHING IS EVEN AND UNLABORED. PATIENT ON MECHANICAL VENT; SETTINGS PRESCRIBED; PT TOLERATED WELL. AMBU BAG AT BED SIDE ALARMS SET PER PROTOCOL AND AUDIBLE. VENT PLUGGED IN TO RED OUTLET. PATIENT ON TELE MONITORING READING TACHY HR IS @113BPM AT THE TIME OF RECEIVED. PT HAS NGT AT R NARE ; INTACT AND IN PLACE; PLACEMENT VERIFIED VIA AUSCULTATION; FLUSHING AND PATENT, NO RESIDUAL NOTED AT THE TIME OF RECEIVED; CONNECTED TO GTUBE FEEDING OF NEPRO @45CC/HR; TOLERATES WELL. NOTED IV SITE ON R UA PICC LINE AND L FA #20 ; BOTH PATENT, INTACT AND FLUSHING WELL; NO S/S OF INFECTION OR INFILTRATION. WITH IV FLUID RUNNING ORDERED. PT ALSO HAS VERSED RECEIVED @6MG/HR AND FENTANYL RECEIVED @100MCG/HR. WITH R SIDE CHEST TUBE ; DRESSING SECURED AND NO SIGNS OF INFECTION AND BLEEDING. FLEMING CATH IN PLACE, MODERATE URINE OUTPUT NOTED. WITH BILATERAL SOFT RESTRAINTS IN PLACED, MONITORED AND ASSESSED PER PROTOCOL. SAFETY MEASURES HAVE BEEN PROVIDED AND IMPLEMENTED. PATIENT BED ALARM IS ON. HEAD OF BED ELEVATED. BED IS LOCKED, IN LOWEST POSITION AND SIDE RAILS UP. CALL LIGHT WITHIN REACH OF THE PATIENT. APPLICABLE ISOLATION PRECAUTIONS IN PLACE. WILL CONTINUE TO MONITOR AND REASSESS FOR ANY CHANGES AND WILL CARRY OUT ANY ONGOING AND ACTIVE MD ORDER.
--- NOTE | 2021-07-23 20:23 | NUR ---
PT INTUBATED ON [facility] VENT, 7.5 ETT SECURED AT 25CM AT LIP. ETT CUFF CHECKED. VENT ALARMS SET AND AUDIBLE. SX'D SMALL AMT OF CATALAN SECRETIONS. PT O2 SAT 99% ON 80% FIO2 AND PEEP 20. CONTINUE TO MONITOR CLOSELY. Addendum: 07/23/21 at 2025 by IRINA HURTADO RT Amended: Links added.
[2021-07-23] MEDS: FENTANYL CITRAT IV 2,500 MCG in IV NS 0.9% 200 ML IV PRN (21:26)
[2021-07-24] VITALS (46 sets, daily range): BP systolic 102–121; BP diastolic 58–67
--- NOTE | 2021-07-24 | NUR ---
RN NOTES PATIENT REMAINED TO BE IN NO SIGNS OF ACUTE RESPIRATORY DISTRESS , VITAL SIGNS WNL AT THIS TIME.WILL CONTINUE TO MONITOR AND REASSESS FOR ANY CHANGES THROUGHOUT THE SHIFT.
--- NOTE | 2021-07-24 04:00 | NUR ---
RN NOTES NO NOTED CHANGES IN PATIENT CONDITION AT THIS TIME; PATIENT VITALS STABLE, NO SIGNS OF ACUTE RESPIRATORY DISTRESS. AM PATIENT CARE RENDERED. WILL CONTINUE TO MONITOR AND REASSESS FOR ANY CHANGES THROUGHOUT THE SHIFT.
--- NOTE | 2021-07-24 04:07 | NUR ---
FIO2 TITRATED TO 75%. O2 SAT 99%. RN NOTIFIED.
[2021-07-24 04:19] LABS: BASOPHILS % (AUTO) 0.1 % (0.0-2.0); EOSINOPHILS % (AUTO) 0.1 % (0.0-6.0); HEMATOCRIT 43 % (39-51); HEMOGLOBIN 14.2 g/dL (13.5-17.5); LYMPHOCYTES # (AUTO) 0.2 K/uL (0.8-4.8); LYMPHOCYTES % (AUTO) 1.4 % (20.0-44.0); MEAN CORPUSCULAR HGB CONC 33 g/dl (31.0-36.0); MEAN CORPUSCULAR VOLUME 102 fL (80-96); MONOCYTES # (AUTO) 0.3 K/uL (0.1-1.30); NEUTROPHILS # (AUTO) 10.3 K/uL (1.8-8.9); NEUTROPHILS % (AUTO) 95.4 % (43.0-81.0); PLATELET COUNT (AUTO) 109 K/uL (150-450); RED BLOOD CELL COUNT(AUTO) 4.18 MIL/uL (4.5-6.0); WHITE BLOOD COUNT (AUTO) 10.8 K/uL (4.3-11.0)
[2021-07-24 04:46] LABS: ALANINE AMINOTRANSFERASE 110 U/L (12-78); ALBUMIN 1.9 g/dL (3.4-5.0); ALKALINE PHOSPHATASE 127 U/L (46-116); ASPARTATE AMINOTRANSFERASE 60 U/L (15-37); BILIRUBIN,TOTAL 0.9 mg/dL (0.2-1.0); CALCIUM, SERUM 8.7 mg/dL (8.5-10.1); CARBON DIOXIDE 26 mmol/L (21-32); CHLORIDE 104 mmol/L (98-107); CREATININE 1.2 mg/dL (0.6-1.3); GLUCOSE 135 mg/dL (74-106); MAGNESIUM 2.8 mg/dL (1.8-2.4); PHOSPHORUS 5.1 mg/dL (2.5-4.9); SODIUM SERUM 135 mmol/L (136-145); UREA NITROGEN, BLOOD 79 mg/dL (7-18)
--- NOTE | 2021-07-24 04:50 | NUR ---
RN NOTES RECEIVED CRITICAL LAB FROM LAB; SPOKE WITH SMITH. Delia LEVEL 6.7, WILL NOTIFY AGUS SMART. AGUS SMART NOTIFIED; AWAITING FOR ORDERS. Addendum: 07/24/21 at 0533 by FRANCISCO MOREAU RN AGUS SMART ORDERED: KAYEXELATE 30GMX1. WILL CARRY OUT ORDERED. SENIOR TECHNICAL ARCHITECT MADE AWARE.
[2021-07-24 04:51] LABS: POTASSIUM 6.7 mmol/L (3.5-5.1)
[2021-07-24] MEDS ORDERED: SODIUM POLYSTYRENE SULFONATE 15 G/60 ML BOTTLE ONE (05:56)
[2021-07-24] MEDS ORDERED: SODIUM POLYSTYRENE SULFONATE 15 G/60 ML BOTTLE PO ONE (06:00)
--- NOTE | 2021-07-24 06:56 | NUR ---
RN CLOSING NOTE: PATIENT REMAINS IN ROOM IN NO SIGNS OF RESPIRATORY DISTRESS, PATIENT STILL ON MECH VENT; SETTINGS PRESCRIBED;TOLERATING WELL SATURATING @ >95% SP02. SAFETY MEASURES IMPLEMENTED, BED IN LOWEST POSITION, LOCKED, SIDE RAILS UP, CALL LIGHT WITHIN REACH. ALL NEEDS AND ORDERS ADDRESSED DURING THE SHIFT. IV ACCESS MAINTAINED INTACT, SECURED AND FLUSHING WELL. ALL DUE MEDS GIVEN ORDERED & SCHEDULED ; PATIENT TOLERATED WELL. STILL WITH ONGOING DRIP FOLLOWS: IV FLUID ORDERED, VERSED DRIP VIA MACHINE FINISHER PUMP @6MG/HR (6MLS/HR) AND FENTANYL DRIP VIA MACHINE FINISHER PUMP @100NCG/HR (10MLS/HR) ALL RUNNING AND MONITORED PER PROTOCOL PATIENT KEPT CLEAN AND COMFORTABLE WITHIN THE SHIFT. PATIENT ENDORSED TO INCOMING SHIFT RN WITH STABLE VITAL SIGN AND FOR CONTINUITY OF CARE.
--- NOTE | 2021-07-24 07:30 | NUR ---
RN NOTES PT FOUND SUPINE DISPLAYING NO S/S OF ACUTE DISTRESS, FLACC = 0 AND BILATERAL RISE AND FALL OF THE CHEST, ON ETT/VENT ORDERED. CHEST TUBE INTACT, DRY AND INTACT WITH RESERVOIR COLLECTING FLUID WITH SLIGHT TIDALING OBSERVED. SEDATION ORDERS BEING MAINTAINED, VERSED AT 6 MG/HR AND FENTANYL AT 100 MCG/HR. FLEMING CATH IN PLACE, SECURED AND DRAINING BY GRAVITY BELOW PATIENT. SAFETY MEASURES IN PLACE, BED LOCKED AND IN LOWEST POSITION, SIDE RAILS UPX3, CALL LIGHT WITHIN REACH, BED ALARM ARMED. RN WILL MONITOR AND TREAT THROUGHOUT SHIFT.
[2021-07-24] MEDS: BISACODYL (5 MG) 5 MG TABLET.DR PO SCH ×2 (08:01→17:15)
[2021-07-24] MEDS: DEXAMETHASONE SOD PHOSPHATE 4 MG/ML VIAL IV SCH (08:02)
[2021-07-24] MEDS: CLOTRIMAZOLE 1% 15 GM TUBE TP SCH ×2 (08:04→17:15)
[2021-07-24] MEDS: ENOXAPARIN SODIUM 40 MG/0.4 ML DISP.SYRIN SQ SCH ×2 (08:07→20:36)
[2021-07-24 08:37] LABS: ABG BASE EXCESS -6.2 mmol/L; ABG OXYGEN SATURATION 89.4 % (92.0-98.5); ABG PCO2 62.1 mmHg (35.0-45.0); ABG PH 7.189 (7.350-7.450); ABG PO2 61.9 mmHg (75.0-100.0); AaDO2 406.9 mmHg; COHb 0.6 % (0.5-1.5); MetHb 0.3 % (0.0-1.5); O2Hb 88.6 % (94.0-97.0); PEEP,BG 20 cm H2O; SITE, ABG Right Radial; VENT MODE, BG AC 75%; VT, ABG 450 mL
--- NOTE | 2021-07-24 09:00 | NUR ---
RN NOTE SEDATION VACATION NOT PERFORMED. PT ON 20 PEEP AND AC 28
[2021-07-24] MEDS: MIDAZOLAM HCL 100 MG in IV NS 0.9% 80 ML IV PRN (09:54)
[2021-07-24] MEDS ORDERED: SODIUM POLYSTYRENE SULFONATE 15 G/60 ML BOTTLE GT ONE (11:30)
[2021-07-24] MEDS ORDERED: DEXTROSE 50%-WATER 50 ML DISP.SYRIN IVP ONE (11:30)
[2021-07-24] MEDS ORDERED: INSULIN REGULAR, HUMAN 100 UNIT/ML 10 ML VIAL IV ONE (11:30)
[2021-07-24] MEDS ORDERED: FUROSEMIDE 40 MG/4 ML VIAL IV SCH (11:30)
[2021-07-24] MEDS ORDERED: Calcium Gluconate 1GM/10ML 4.65 MEQ in IV D5W 50 ML IV ONE (11:30)
[2021-07-24] MEDS ORDERED: FUROSEMIDE 40 MG/4 ML VIAL IV ONE (12:00)
--- NOTE | 2021-07-24 13:10 | NUR ---
SS note SS received request to contact pt's family. SW contacted pt's daughter, Courtney, . Pt's daughter requested letter stating the pt is intubated, per pt's snake charmer's request. SW filed letter and a copy of the letter for the pt's family, in the pt's chart. ESTELA notified charge entryUmm to f/u and provide the letter to the pt's family.
[2021-07-24 14:59] LABS: CALCIUM, SERUM 7.9 mg/dL (8.5-10.1); CREATININE 1.1 mg/dL (0.6-1.3)
[2021-07-24 15:02] LABS: POTASSIUM 5.6 mmol/L (3.5-5.1)
[2021-07-24] MEDS: NEPRO 1,000 ML BOTTLE NG SCH (15:34)
--- NOTE | 2021-07-24 19:00 | NUR ---
RN NOTES PT FOUND SUPINE DISPLAYING NO S/S OF ACUTE DISTRESS, FLACC = 0 AND BILATERAL RISE AND FALL OF THE CHEST, ON ETT/VENT ORDERED. CHEST TUBE INTACT, DRY AND INTACT WITH RESERVOIR COLLECTING FLUID WITH SLIGHT TIDALING OBSERVED. SEDATION ORDERS MAINTAINED, VERSED AT 6 MG/HR AND FENTANYL AT 100 MCG/HR. FLEMING CATH IN PLACE, SECURED AND DRAINING BY GRAVITY BELOW PATIENT. NGT RESIDUAL WAS FOUND TO BE > 200 ML AT 1800. FEEDING TURNED OFF, GUNSMITH APPRENTICE WILL BE INFORMED. SBAR AND REPORT GIVEN TO GUNSMITH APPRENTICE RN. PT ENDORSED FOR LUCRECIA.
--- NOTE | 2021-07-24 19:30 | NUR ---
N OPENING NOTES: RECEIVED SEDATED PT IN BED IN NO S/SX OF ACUTE DISTRESS. NO SOB NOTED. PATIENT'S BREATHING IS EVEN AND UNLABORED. PATIENT ON MECHANICAL VENT; SETTINGS PRESCRIBED; PT TOLERATED WELL. AMBU BAG AT BED SIDE ALARMS SET PER PROTOCOL AND AUDIBLE. VENT PLUGGED IN TO RED OUTLET. PATIENT ON TELE MONITORING READING TACHY HR IS @114 BPM AT THE TIME OF RECEIVED. PT HAS NGT AT R NARE ; INTACT AND IN PLACE; PLACEMENT VERIFIED WITH ANOTHER RN (BRENDAN DE LA O) VIA AUSCULTATION; FLUSHING AND PATENT, NO RESIDUAL NOTED AT THE TIME OF RECEIVED; CONNECTED TO GTUBE FEEDING OF NEPRO @45CC/HR; TOLERATES WELL. NOTED IV SITE ON R UA PICC LINE AND L FA #20 ; BOTH PATENT, INTACT AND FLUSHING WELL; NO S/S OF INFECTION OR INFILTRATION. WITH IV FLUID RUNNING ORDERED. PT ALSO HAS VERSED RECEIVED @6MG/HR AND FENTANYL RECEIVED @100MCG/HR. PATIENT HAS R SIDE CHEST TUBE ; DRESSING SECURED AND NO SIGNS OF INFECTION AND BLEEDING. FLEMING CATH IN PLACE, MODERATE URINE OUTPUT NOTED. WITH BILATERAL SOFT RESTRAINTS IN PLACED, MONITORED AND ASSESSED PER PROTOCOL. SAFETY MEASURES HAVE BEEN PROVIDED AND IMPLEMENTED. PATIENT BED ALARM IS ON. HEAD OF BED ELEVATED. BED IS LOCKED, IN LOWEST POSITION AND SIDE RAILS UP. CALL LIGHT WITHIN REACH OF THE PATIENT. APPLICABLE ISOLATION PRECAUTIONS IN PLACE. WILL CONTINUE TO MONITOR AND REASSESS FOR ANY CHANGES AND WILL CARRY OUT ANY ONGOING AND ACTIVE MD ORDER.
--- NOTE | 2021-07-24 20:00 | NUR ---
PT INTUBATED ON VENT. 7.5 ETT SECURED AT 25CM AT THE LIP. PT TOLERATING VENT SETTINGS. SX'D SMALL AMT OF THIN WHITE SECRETIONS. VENT ALARMS SET AND AUDIBLE. VENT PLUGGED INTO RED OUTLET. CONTINUE TO MONITOR. Addendum: 07/24/21 at 2000 by IRINA HURTADO RT Amended: Links added.
[2021-07-24] MEDS: IV 1/2NS 1000 ML 1,000 ML IV PRN (20:30)
[2021-07-24] MEDS: FENTANYL CITRAT IV 2,500 MCG in IV NS 0.9% 200 ML IV PRN (23:03)
[2021-07-25] VITALS (48 sets, daily range): BP systolic 83–124; BP diastolic 45–69
--- NOTE | 2021-07-25 | NUR ---
RN NOTES PATIENT REMAINED TO BE IN NO SIGNS OF ACUTE RESPIRATORY DISTRESS , VITAL SIGNS WNL AT THIS TIME. WILL CONTINUE TO MONITOR AND REASSESS FOR ANY CHANGES THROUGHOUT THE SHIFT.
[2021-07-25] MEDS: MIDAZOLAM HCL 100 MG in IV NS 0.9% 80 ML IV PRN ×2 (02:00→17:46)
[2021-07-25 04:59] LABS: EOSINOPHILS % (AUTO) 0.4 % (0.0-6.0); HEMATOCRIT 41 % (39-51); HEMOGLOBIN 13.6 g/dL (13.5-17.5); LYMPHOCYTES # (AUTO) 0.2 K/uL (0.8-4.8); LYMPHOCYTES % (AUTO) 1.4 % (20.0-44.0); MEAN CORPUSCULAR HGB CONC 33 g/dl (31.0-36.0); MEAN CORPUSCULAR VOLUME 103 fL (80-96); MONOCYTES # (AUTO) 0.3 K/uL (0.1-1.30); MONOCYTES % (AUTO) 2.5 % (2.0-12.0); NEUTROPHILS # (AUTO) 11.9 K/uL (1.8-8.9); NEUTROPHILS % (AUTO) 95.7 % (43.0-81.0); PLATELET COUNT (AUTO) 92 K/uL (150-450); RED BLOOD CELL COUNT(AUTO) 4.02 MIL/uL (4.5-6.0); WHITE BLOOD COUNT (AUTO) 12.5 K/uL (4.3-11.0)
[2021-07-25 05:21] LABS: ALANINE AMINOTRANSFERASE 116 U/L (12-78); ALBUMIN 1.9 g/dL (3.4-5.0); ALKALINE PHOSPHATASE 136 U/L (46-116); ASPARTATE AMINOTRANSFERASE 51 U/L (15-37); BILIRUBIN,TOTAL 0.7 mg/dL (0.2-1.0); CALCIUM, SERUM 8.8 mg/dL (8.5-10.1); CARBON DIOXIDE 27 mmol/L (21-32); CHLORIDE 101 mmol/L (98-107); CREATININE 1.3 mg/dL (0.6-1.3); GLUCOSE 132 mg/dL (74-106); MAGNESIUM 2.8 mg/dL (1.8-2.4); PHOSPHORUS 4.7 mg/dL (2.5-4.9); POTASSIUM 6.1 mmol/L (3.5-5.1); SODIUM SERUM 135 mmol/L (136-145); TOTAL PROTEIN, SERUM 4.9 g/dL (6.4-8.2)
[2021-07-25 05:38] LABS: UREA NITROGEN, BLOOD 86 mg/dL (7-18)
--- NOTE | 2021-07-25 05:48 | NUR ---
RN NOTES CRITICAL LAB RECEIVED FROM LAB ; SPOKE WITH SMITH. BUN LEVEL 86. NOTIFIED ONCESTEFANÍA SMART (GALLITO MITCHELL) NO NEW ORDERS. CHEESE WEIGHER MADE AWARE.
[2021-07-25] MEDS: IV 1/2NS 1000 ML 1,000 ML IV PRN (06:01)
--- NOTE | 2021-07-25 06:50 | NUR ---
RN CLOSING NOTE: PATIENT REMAINS IN ROOM IN NO SIGNS OF RESPIRATORY DISTRESS, PATIENT STILL ON MECH VENT; SETTINGS PRESCRIBED;TOLERATING WELL SATURATING @ >95% SP02. SAFETY MEASURES IMPLEMENTED, BED IN LOWEST POSITION, LOCKED, SIDE RAILS UP, CALL LIGHT WITHIN REACH. ALL NEEDS AND ORDERS ADDRESSED DURING THE SHIFT. IV ACCESS MAINTAINED INTACT, SECURED AND FLUSHING WELL. ALL DUE MEDS GIVEN ORDERED & SCHEDULED ; PATIENT TOLERATED WELL. STILL WITH ONGOING DRIP FOLLOWS: IV FLUID ORDERED, VERSED DRIP VIA GRAIN ELEVATOR OPERATOR PUMP @6MG/HR (6MLS/HR) AND FENTANYL DRIP VIA GRAIN ELEVATOR OPERATOR PUMP @100MCG/HR (10MLS/HR) ALL RUNNING AND MONITORED PER PROTOCOL PATIENT KEPT CLEAN AND COMFORTABLE WITHIN THE SHIFT. PATIENT ENDORSED TO INCOMING SHIFT RN WITH STABLE VITAL SIGN AND FOR CONTINUITY OF CARE.
[2021-07-25] MEDS ORDERED: INSULIN REGULAR, HUMAN 100 UNIT/ML 3 ML VIAL IV ONE (08:30)
[2021-07-25] MEDS: DEXAMETHASONE SOD PHOSPHATE 4 MG/ML VIAL IV SCH (08:48)
[2021-07-25] MEDS: ENOXAPARIN SODIUM 40 MG/0.4 ML DISP.SYRIN SQ SCH ×2 (08:50→21:40)
[2021-07-25] MEDS: BISACODYL (5 MG) 5 MG TABLET.DR PO SCH ×2 (08:50→17:45)
[2021-07-25] MEDS: CLOTRIMAZOLE 1% 15 GM TUBE TP SCH ×2 (08:51→17:48)
[2021-07-25] MEDS: Sodium Bicarbonate 150 MEQ in IV D5W 1,000 ML IV SCH (08:58)
[2021-07-25] MEDS ORDERED: DEXTROSE 50%-WATER 50 ML DISP.SYRIN IVP ONE (09:00)
[2021-07-25 10:46] LABS: ABG BASE EXCESS -5.9 mmol/L; ABG OXYGEN SATURATION 85.4 % (92.0-98.5); ABG PCO2 64.1 mmHg (35.0-45.0); ABG PH 7.184 (7.350-7.450); ABG PO2 55.3 mmHg (75.0-100.0); AaDO2 484.3 mmHg; COHb 0.5 % (0.5-1.5); MetHb 0.3 % (0.0-1.5); O2Hb 84.7 % (94.0-97.0); SITE, ABG Right Radial
[2021-07-25] MEDS: CEFEPIME 2 GM in IV D5W 100 ML IV SCH (14:57)
[2021-07-25] MEDS ORDERED: SODIUM POLYSTYRENE SULFONATE 15 G/60 ML BOTTLE RC ONE (15:00)
--- NOTE | 2021-07-25 18:00 | NUR ---
ICU/RN PM CARE PROVIDED.CHEST TUBE DRESSING CHANGED.PT HAS LEAK FROM THE CHEST TUBE SIDE.SUBCUTANEOUS EMPHYSEMA.GENERALIZED EDEMA NOTED.
--- NOTE | 2021-07-25 19:30 | NUR ---
N OPENING NOTES: RECEIVED SEDATED PT IN BED IN NO S/SX OF ACUTE DISTRESS. NO SOB NOTED. PATIENT'S BREATHING IS EVEN AND UNLABORED. PATIENT ON MECHANICAL VENT; SETTINGS PRESCRIBED; PT TOLERATED WELL. AMBU BAG AT BED SIDE ALARMS SET PER PROTOCOL AND AUDIBLE. VENT PLUGGED IN TO RED OUTLET. PATIENT ON TELE MONITORING READING TACHY HR IS @110 BPM AT THE TIME OF RECEIVED. PT HAS NGT AT R NARE ; INTACT AND IN PLACE; CONNECTED ON LOW INTERMITTENT SUCTION 50CC OUTPUT AT THE TIME OF RECEIVED. NOTED IV SITE ON R UA PICC LINE AND L FA #20 ; BOTH PATENT, INTACT AND FLUSHING WELL; NO S/S OF INFECTION OR INFILTRATION. WITH IV FLUID RUNNING ORDERED. PT ALSO HAS VERSED RECEIVED @6MG/HR AND FENTANYL RECEIVED @100MCG/HR. PATIENT HAS R SIDE CHEST TUBE TO SUCTION ; DRESSING SECURED AND NO SIGNS OF BLEEDING. FLEMING CATH IN PLACE, MODERATE URINE OUTPUT NOTED. WITH BILATERAL SOFT RESTRAINTS IN PLACED, MONITORED AND ASSESSED PER PROTOCOL. SAFETY MEASURES HAVE BEEN PROVIDED AND IMPLEMENTED. PATIENT BED ALARM IS ON. HEAD OF BED ELEVATED. BED IS LOCKED, IN LOWEST POSITION AND SIDE RAILS UP. CALL LIGHT WITHIN REACH OF THE PATIENT. APPLICABLE ISOLATION PRECAUTIONS IN PLACE. WILL CONTINUE TO MONITOR AND REASSESS FOR ANY CHANGES AND WILL CARRY OUT ANY ONGOING AND ACTIVE MD ORDER.
[2021-07-25] MEDS: FENTANYL CITRAT IV 2,500 MCG in IV NS 0.9% 200 ML IV PRN (23:30)
[2021-07-26] VITALS (49 sets, daily range): BP systolic 91–115; BP diastolic 28–62
[2021-07-26] MEDS: Sodium Bicarbonate 150 MEQ in IV D5W 1,000 ML IV SCH ×2 (00:25→16:22)
[2021-07-26] MEDS: CEFEPIME 2 GM in IV D5W 100 ML IV SCH ×2 (01:05→13:12)
[2021-07-26 05:21] LABS: EOSINOPHILS % (AUTO) 0.8 % (0.0-6.0); HEMATOCRIT 38 % (39-51); HEMOGLOBIN 12.7 g/dL (13.5-17.5); LYMPHOCYTES # (AUTO) 0.1 K/uL (0.8-4.8); LYMPHOCYTES % (AUTO) 1.8 % (20.0-44.0); MEAN CORPUSCULAR HGB CONC 34 g/dl (31.0-36.0); MEAN CORPUSCULAR VOLUME 102 fL (80-96); MONOCYTES # (AUTO) 0.1 K/uL (0.1-1.30); MONOCYTES % (AUTO) 1.4 % (2.0-12.0); PLATELET COUNT (AUTO) 86 K/uL (150-450); RED BLOOD CELL COUNT(AUTO) 3.73 MIL/uL (4.5-6.0); WHITE BLOOD COUNT (AUTO) 6.2 K/uL (4.3-11.0)
[2021-07-26 06:34] LABS: ALBUMIN 1.8 g/dL (3.4-5.0); BILIRUBIN,TOTAL 0.8 mg/dL (0.2-1.0); CALCIUM, SERUM 7.9 mg/dL (8.5-10.1); CREATININE 1.3 mg/dL (0.6-1.3); MAGNESIUM 2.8 mg/dL (1.8-2.4); PHOSPHORUS 4.5 mg/dL (2.5-4.9); TOTAL PROTEIN, SERUM 4.3 g/dL (6.4-8.2)
[2021-07-26 06:36] LABS: POTASSIUM 6.4 mmol/L (3.5-5.1)
--- NOTE | 2021-07-26 06:55 | NUR ---
RN CLOSING NOTE: PATIENT REMAINS IN ROOM IN NO SIGNS OF RESPIRATORY DISTRESS, PATIENT STILL ON MECH VENT; SETTINGS PRESCRIBED;TOLERATING WELL SATURATING @ >95% SP02. SAFETY MEASURES IMPLEMENTED, BED IN LOWEST POSITION, LOCKED, SIDE RAILS UP, CALL LIGHT WITHIN REACH. ALL NEEDS AND ORDERS ADDRESSED DURING THE SHIFT. IV ACCESS MAINTAINED INTACT, SECURED AND FLUSHING WELL. ALL DUE MEDS GIVEN ORDERED & SCHEDULED ; PATIENT TOLERATED WELL. STILL WITH ONGOING DRIP FOLLOWS: IV FLUID ORDERED, VERSED DRIP VIA DOOR SERVICEMAN PUMP @6MG/HR (6MLS/HR) AND FENTANYL DRIP VIA DOOR SERVICEMAN PUMP @100NCG/HR (10MLS/HR) ALL RUNNING AND MONITORED PER PROTOCOL PATIENT KEPT CLEAN AND COMFORTABLE WITHIN THE SHIFT. PATIENT ENDORSED TO INCOMING SHIFT RN WITH STABLE VITAL SIGN AND FOR CONTINUITY OF CARE.
--- NOTE | 2021-07-26 07:30 | NUR ---
ICU/RN PT IS INTUBATED ON THE VENT AC MODE .FIO2-85%,PEEP-20,SAT O2-92-93%.SEDATED WITH VERSED AND FENTANYL.V/S STABLE,AFEBRILE.ON D5W PLUS 150 MEQ SODIUM BICARB DRIP.RIGHT UPPER CHEST TUBE .RIGHT UPPER ARM PICC LINE .F/C IN PLACED DRAINING WITH RADHA URINE .GENERALIZED EDEMA PRESENT.LABS REVIEW.MD NOTIFIED,NEW ORDERS RECEIVED.NG TUBE CLAMPED.ABDOMEN DISTENDED.BOWEL SOUNDS PRESENT.NO BM FOR A FEW DAYS .PT RECEIVED KAYEXALATE .NO BM. NOTIFIED.SUCTION PROVIDED.REPOSITION FOR COMFORT.
[2021-07-26] MEDS ORDERED: SODIUM POLYSTYRENE SULFONATE 15 G/60 ML BOTTLE RC ONE (08:00)
[2021-07-26] MEDS ORDERED: INSULIN REGULAR, HUMAN 100 UNIT/ML 10 ML VIAL IV ONE (08:00)
[2021-07-26] MEDS ORDERED: DEXTROSE 50%-WATER 50 ML DISP.SYRIN IVP ONE (08:00)
[2021-07-26] MEDS: CLOTRIMAZOLE 1% 15 GM TUBE TP SCH ×2 (08:02→17:00)
[2021-07-26] MEDS: ENOXAPARIN SODIUM 40 MG/0.4 ML DISP.SYRIN SQ SCH (08:02)
[2021-07-26] MEDS: DEXAMETHASONE SOD PHOSPHATE 4 MG/ML VIAL IV SCH (08:02)
[2021-07-26] MEDS: BISACODYL (5 MG) 5 MG TABLET.DR PO SCH ×2 (08:02→18:06)
--- NOTE | 2021-07-26 08:30 | NUR ---
ICU/RN DUE MEDS ARE GIVEN ORDERED. K-6.4.10 UNITS OF REGULAR INSULIN IV ,D50%.IV .KAYEXALATE VIA NG TUBE GIVEN .
[2021-07-26] MEDS ORDERED: FUROSEMIDE 20 MG/2 ML VIAL IV ONE (11:00)
[2021-07-26] MEDS ORDERED: SODIUM POLYSTYRENE SULFONATE 15 G/60 ML BOTTLE PO ONE (11:00)
[2021-07-26] MEDS: MIDAZOLAM HCL 100 MG in IV NS 0.9% 80 ML IV PRN (11:37)
[2021-07-26 14:44] LABS: CALCIUM, SERUM 6.2 mg/dL (8.5-10.1); CREATININE 1.1 mg/dL (0.6-1.3); POTASSIUM 4.8 mmol/L (3.5-5.1)
--- NOTE | 2021-07-26 18:00 | NUR ---
ICU/RN PM CARE PROVIDED.PT CHEST TUBE SIDE LEAKING ,DRESSING CHANGED .GENERALIZED EDEMA PRESENT .LASIX IV 40 WAS GIVEN ORDERED.TOTAL URINE OUTPUT 450 ML FOR LAST 12 HRS.NG TUBE FEEDING 20 ML /HR.SUCTION PROVIDED.PT HAS BLOODY SECRETION .LOVENOX D/C.PT SAT O2 DECREASED.PLACED ON 100% FIO2,SAT O2-87%.CONTINUE MONITORING.
--- NOTE | 2021-07-26 19:30 | NUR ---
ARTILLERY METEOROLOGICAL MAN OPENING NOTES: RECEIVED SEDATED PT IN BED ON MECHANICAL VENT; SETTINGS PRESCRIBED; PT TOLERATED WELL; CURRENT O2 SAT UPON RECEIVED IS AT 87%. AMBU BAG AT BED SIDE ALARMS SET PER PROTOCOL AND AUDIBLE. VENT PLUGGED IN TO RED OUTLET. PATIENT ON TELE MONITORING READING TACHY. PT HAS NGT AT R NARE ;PLACEMENT VERIFIED VIA AUSCULTATION; CONNECTED WITH ONGOING TUBE FEEDING OF NEPRO @20ML/HR. NOTED IV SITE ON R UA PICC LINE AND L FA #20 ; BOTH PATENT, INTACT AND FLUSHING WELL; NO S/S OF INFECTION OR INFILTRATION. WITH IV FLUID RUNNING ORDERED (NA BICARB IN D5W @75ML/HS) . PT ALSO HAS VERSED DRIP VIA SUPERVISOR ENGRAVING RECEIVED @6MG/HR AND FENTANYL RECEIVED @100MCG/HR. PATIENT HAS R SIDE CHEST TUBE TO SUCTION ; DRESSING SECURED BUT WITH SIGNS OF LEAK; WILL CHANGE DRESSING NEEDED. FLEMING CATH IN PLACE, MODERATE URINE OUTPUT NOTED.NO BM DURING THE AM SHIFT CUSTOMER SECURITY CLERK MADE AND AM SHIFT MD WELL AWARE. SAFETY MEASURES HAVE BEEN PROVIDED AND IMPLEMENTED. PATIENT BED ALARM IS ON. HEAD OF BED ELEVATED. BED IS LOCKED, IN LOWEST POSITION AND SIDE RAILS UP. CALL LIGHT WITHIN REACH OF THE PATIENT. APPLICABLE ISOLATION PRECAUTIONS IN PLACE. WILL CONTINUE TO MONITOR AND REASSESS FOR ANY CHANGES AND WILL CARRY OUT ANY ONGOING AND ACTIVE MD ORDER.
--- NOTE | 2021-07-26 19:53 | NUR ---
RT NOTES PT RECEIVED ORALLY INTUBATED ON [facility] VENT W/ 7.5 ETT SECURED AT 25CM AT THE LIP. AUTOMATION CONTROLS SPECIALIST DONE. SX'D SMALL AMT OF THIN CATALAN SECRETIONS. VENT ALARMS SET AND AUDIBLE. VENT PLUGGED INTO RED OUTLET. WILL CONT TO MONITOR. Addendum: 07/27/21 at 0207 by DENISHA DILL RT Amended: Links added.
--- NOTE | 2021-07-26 19:56 | NUR ---
INFORMATION MANAGEMENT MANAGERCHAR CONVEYOR TENDER PELLETIZER TALK TO DAUGHTER /ALTON [phone]/ REGARDING PT CONDITION & PROGNOSIS. FAMILY AGREED TO PUT PT ON DNR CODE, BUT CONTINUE ALL CURRENT TREATMENTS. PAULA KOHLER NP BAR TACKER SEWING MACHINE WAS NOTIFIED & AGREED TO CHANGE CODE STATUS FROM FULL TO DNR.
[2021-07-26] MEDS: FENTANYL CITRAT IV 2,500 MCG in IV NS 0.9% 200 ML IV PRN (19:58)
[2021-07-27] VITALS (54 sets, daily range): BP systolic 55–152; BP diastolic 33–80
[2021-07-27] MEDS: CEFEPIME 2 GM in IV D5W 100 ML IV SCH ×2 (02:05→15:23)
[2021-07-27] MEDS: MIDAZOLAM HCL 100 MG in IV NS 0.9% 80 ML IV PRN (02:10)
--- NOTE | 2021-07-27 04:00 | NUR ---
RN NOTES NO NOTED CHANGES IN PATIENT CONDITION AT THIS TIME; PATIENT VITALS STABLE, NO SIGNS OF ACUTE RESPIRATORY DISTRESS; 02 SAT AT 91-92% AT THIS TIME. AM PATIENT CARE RENDERED. RESIDUAL TAKEN 150CC; HOLD AND TURNED OFF FEEDING AT THIS TIME WILL REASSESS AFTER 1 HOUR PARQUET FLOOR LAYER'S HELPER MADE AWARE. WILL CONTINUE TO MONITOR AND REASSESS FOR ANY CHANGES THROUGHOUT THE SHIFT.
--- NOTE | 2021-07-27 04:05 | NUR ---
RN NOTES CHEST TUBE DRESSING CHANGE DONE; NOTED LEAK FROM THE SITE. PROPERLY DRESSED AND SECURED WITH TAPE. WILL NOTIFY MD IN THE AM AND WILL ENDORSE TO AM SHIFT FOR FOLLOW THROUGH AND FOR MONITORING. EMAIL MARKETER MADE AWARE.
--- NOTE | 2021-07-27 05:00 | NUR ---
BRENDAN NOTES NGT RESIDUAL CHECK DONE; >100CC ( GREENISH COLOR OUTPUT) AT THIS TIME; KEPT FEEDING ON HOLD. MARCIO CARDONA MADE AWARE. WILL REASSESS AFTER 1 HOUR Addendum: 07/27/21 at 0606 by FRANCISCO MOREAU RN -RESIDUAL CHECK @0600; OUTPUT IS STILL MORE THAN 100CC ( GREENISH COLORED OUTPUT) KEPT FEEDING ON HOLD AND WILL NOTIFY AND ENDORSE TO JEEVAN HUFFMAN. MARCIO CARDONA MADE AWARE.
[2021-07-27 06:18] LABS: EOSINOPHILS % (AUTO) 0.4 % (0.0-6.0); HEMATOCRIT 33 % (39-51); HEMOGLOBIN 11.1 g/dL (13.5-17.5); LYMPHOCYTES # (AUTO) 0.2 K/uL (0.8-4.8); LYMPHOCYTES % (AUTO) 2.8 % (20.0-44.0); MEAN CORPUSCULAR HGB CONC 34 g/dl (31.0-36.0); MEAN CORPUSCULAR VOLUME 102 fL (80-96); MONOCYTES # (AUTO) 0.1 K/uL (0.1-1.30); MONOCYTES % (AUTO) 1.2 % (2.0-12.0); NEUTROPHILS # (AUTO) 5.5 K/uL (1.8-8.9); NEUTROPHILS % (AUTO) 95.6 % (43.0-81.0); PLATELET COUNT (AUTO) 83 K/uL (150-450); RED BLOOD CELL COUNT(AUTO) 3.25 MIL/uL (4.5-6.0); WHITE BLOOD COUNT (AUTO) 5.8 K/uL (4.3-11.0)
--- NOTE | 2021-07-27 06:54 | NUR ---
CLEAN UP WORKER CLOSING NOTES PATIENT REMAINS IN ROOM IN NO SIGNS OF RESPIRATORY DISTRESS, PATIENT STILL ON MECH VENT; SETTINGS PRESCRIBED;TOLERATING WELL SATURATING @>89-91% SP02 AT THE END OF SHIFT. SAFETY MEASURES IMPLEMENTED, BED IN LOWEST POSITION, LOCKED, SIDE RAILS UP, CALL LIGHT WITHIN REACH. ALL NEEDS AND ORDERS ADDRESSED DURING THE SHIFT. IV ACCESS MAINTAINED INTACT, SECURED AND FLUSHING WELL. ALL DUE MEDS GIVEN ORDERED & SCHEDULED ; PATIENT TOLERATED WELL. STILL WITH ONGOING DRIP FOLLOWS: IV FLUID ORDERED,ALSO HAS VERSED DRIP VIA MIXER OPERATOR HELPER HOT METAL PUMP @6MG/HR (6MLS/HR) AND FENTANYL DRIP VIA MIXER OPERATOR HELPER HOT METAL PUMP @100NCG/HR (10MLS/HR) ALL RUNNING AND MONITORED PER PROTOCOL. FEEDING ON HOLD DUE TO >100 RESIDUAL FOR THE LAST 3HOURS. PATIENT KEPT CLEAN AND COMFORTABLE WITHIN THE SHIFT. PATIENT ENDORSED TO INCOMING SHIFT RN WITH STABLE VITAL SIGN AND FOR CONTINUITY OF CARE.
--- NOTE | 2021-07-27 06:56 | NUR ---
RN NOTES FOLLOWED UP WITH PHARMACY FOR 1 BAG OF SODIUM BICARB IN D5W DUE AT 0700; STAFF CONFIRMED THEY WILL SEND IT RIGHT AWAY TO ICU. AWAITING; WILL ENDORSE TO AM SHIFT TO FOLLOW UP. HOME APPLIANCE TECHNICIAN MADE AWARE.
[2021-07-27] MEDS: Sodium Bicarbonate 150 MEQ in IV D5W 1,000 ML IV SCH ×2 (07:25→22:34)
--- NOTE | 2021-07-27 07:30 | NUR ---
RN NOTES: PT FOUND SEDATED IN BED ON MECHANICAL VENT DISPLAYING NO S/S OF ACUTE DISTRESS, BILATERAL RISE AND FALL OF CHEST AND FLACC = 0. PATIENT ON MONITOR. PT HAS NGT AT R NARE. NOTED IV SITE ON R UA PICC LINE AND L FA #20 ; BOTH PATENT, INTACT AND FLUSHING WELL; NO S/S OF INFECTION OR INFILTRATION. WITH IV FLUID RUNNING ORDERED (NA BICARB IN D5W @75ML/HS). PT ALSO HAS VERSED DRIP VIA PLANT TECHNICIAN RECEIVED @6MG/HR AND FENTANYL RECEIVED @100MCG/HR. PATIENT HAS R SIDE CHEST TUBE TO SUCTION, NO AUDITORY LEAK NOTED AT TUBE INSERTION SITE, TIDALING NOTED IN CHAMBER. FLEMING CATH SECURE IN PLACE DRAINING BY GRAVITY. SAFETY MEASURES HAVE BEEN PROVIDED AND IMPLEMENTED. PATIENT BED ALARM IS ON. HEAD OF BED ELEVATED. BED IS LOCKED, IN LOWEST POSITION AND SIDE RAILS UP. CALL LIGHT WITHIN REACH OF THE PATIENT. APPLICABLE ISOLATION PRECAUTIONS IN PLACE.
[2021-07-27 07:37] LABS: CALCIUM, SERUM 8.3 mg/dL (8.5-10.1); CARBON DIOXIDE 37 mmol/L (21-32); CHLORIDE 99 mmol/L (98-107); CREATININE 1.6 mg/dL (0.6-1.3); GLUCOSE 137 mg/dL (74-106); MAGNESIUM 2.9 mg/dL (1.8-2.4); POTASSIUM 5.7 mmol/L (3.5-5.1); SODIUM SERUM 137 mmol/L (136-145)
[2021-07-27 07:54] LABS: UREA NITROGEN, BLOOD 103 mg/dL (7-18)
[2021-07-27] MEDS: BISACODYL (5 MG) 5 MG TABLET.DR PO SCH (08:19)
[2021-07-27] MEDS: DEXAMETHASONE SOD PHOSPHATE 4 MG/ML VIAL IV SCH (08:19)
[2021-07-27] MEDS: CLOTRIMAZOLE 1% 15 GM TUBE TP SCH ×2 (08:20→17:08)
--- NOTE | 2021-07-27 08:45 | NUR ---
RN NOTE MD CROW ORDERED INCREASE OF VERSED FROM 6 MG/HR TO 7 MG/HR. RN ACKNOWLEDGED AND INCREASED DOSE IMMEDIATELY.
--- NOTE | 2021-07-27 09:06 | NUR ---
RN NOTE MD CROW ORDERED 5 MG MORPHINE IV ONCE NOW. RN VERBALIZED BACK TO MD TO CONFIRM AND WILL ENTER DIRECTED.
[2021-07-27] MEDS ORDERED: MORPHINE SULFATE INJ 4 MG/ML DISP.SYRIN IV ONE (09:30)
--- NOTE | 2021-07-27 09:44 | NUR ---
RN NOTE RN SPOKE TO MD, MD GAVE ORDER: DIPRIVAN TO TITRATE TO RR OF 28. RN VERBALIZED ORDER BACK TO MD TO CONFIRM AND WILL ENTER DIRECTED.
[2021-07-27 10:08] LABS: ABG BASE EXCESS 8.4 mmol/L; ABG OXYGEN SATURATION 81.6 % (92.0-98.5); ABG PCO2 75.7 mmHg (35.0-45.0); ABG PH 7.309 (7.350-7.450); ABG PO2 48.4 mmHg (75.0-100.0); AaDO2 588.9 mmHg; COHb 0.4 % (0.5-1.5); MetHb 0.3 % (0.0-1.5); SITE, ABG Right Radial
[2021-07-27] MEDS ORDERED: BISACODYL SUPP (10 MG) 10 MG/SUPP.RECT SUPP.RECT RC ONE (11:30)
[2021-07-27] MEDS: PROPOFOL 100 ML IV PRN ×4 (11:30→19:09)
--- NOTE | 2021-07-27 13:24 | NUR ---
RT PATIENT REMAINS ORALLY INTUBATED ON [facility] VENT IN CRITICAL CONDITION. VT INCREASED TO [address] CROW AWARE THAT VT NOT BEING REACHED BY PATIENT. NOTED LEAK IN CHEST TUBE. INCREASED RESP RATE AND DESATURATION NOTED. Addendum: 07/27/21 at 1326 by WOLF WHITE RT Amended: Links added.
[2021-07-27] MEDS: NOREPINEPHRINE 8 MG in IV NS 0.9% 242 ML IV PRN (13:50)
--- NOTE | 2021-07-27 15:00 | NUR ---
RN NOTE PT SPO2 DECREASED TO 77%. PT ON 100% FIO2
--- NOTE | 2021-07-27 17:29 | NUR ---
PT NOTE I, UBALDO UGARTE, HAVE DONNED FULL PPE AND KNOWINGLY ENTER A COVID + ENVIRONMENT EVEN THOUGH I AM NOT VACCINATED. AP INITIALS
[2021-07-27] MEDS: FENTANYL CITRAT IV 2,500 MCG in IV NS 0.9% 200 ML IV PRN (18:38)
--- NOTE | 2021-07-27 19:05 | NUR ---
RECEIVED PT ON BED SEDATED ON ETT/VENT SETTING PER FIO2 100% SPO2 80% MD IS AWARE PT IS IN FULL VENT SEETING PT IS ON DNR STATUS, BEDSIDE MONITOR READS SINUS RHYTHM 80'S HAVE R NGTUBE ON PLACE RESISUAL IS 300+ FEEDING WAS OFF SINCE THIS MORNING PER AM SHIFT NURSE, PT GETTING FENTANYL AT 100 MCG/HR, VERSED @ 7 MCG/MIN, PROPOFOL @ 35 MCG/KG/MIN AND D5W+ NaHCO3 @ 75 ML/HR INFUSING VIA BAYRON PICC, HAVE RIGHT CHEST TUBE CONNECTED TO LIS BUBBLING ON CHAMBER NOTED, PER AM SHIFT NURSE MD IS AWARE OF IT, CHEST TUBE HAVE DARK RED OUTPUT, HAVE FLEMING CATHETER WITH YELLOW URINE DRAINING VIA GRAVITY BED ON LOWEST POSITION AND LOCKED SIDE RAILS UP WILL CONT TO MONITOR
--- NOTE | 2021-07-27 19:08 | NUR ---
RN NOTES SBAR GIVEN TO R AND D LAB TECHNICIAN RN. REPORT INCLUDES CURRENT STATUS, RX, VENT SETTINGS, EVENTS THROUGHOUT THE DAY. TRANSFER OF CARE COMPLETED.
--- NOTE | 2021-07-27 20:42 | NUR ---
REPORTED TO LEGAL COLLECTOR HOSPITALIST PAULA KOHLER EXCAVATING MACHINE OPERATOR THAT PT GASTRIC RESIDUAL IS >300 WITH ORDER FOR REGLAN 10 MG IV Q6H NOTED AND CARRIED OUT
[2021-07-27] MEDS: METOCLOPRAMIDE HCL 10 MG/2 ML VIAL IV SCH (20:54)
[2021-07-27] MEDS ORDERED: LINEZOLID RTU BAG 300 ML IV ONE (20:57)
[2021-07-27] MEDS: LINEZOLID RTU BAG 600 MG in PREMIX 1 EA IV SCH (21:02)
[2021-07-27] MEDS ORDERED: SENNOSIDES 8.6 MG TABLET NG SCH (22:00)
[2021-07-28] VITALS (76 sets, daily range): BP systolic 67–193; BP diastolic 40–94
--- NOTE | 2021-07-28 00:13 | NUR ---
RESIDUAL STILL 200+ FEEDING STILL ON HOLD PT STILL SEDATED SPO2 82% IN FULL VENT SETTING WILL CONT TO MONITOR
[2021-07-28] MEDS: CEFEPIME 2 GM in IV D5W 100 ML IV SCH ×2 (01:11→14:03)
[2021-07-28] MEDS: METOCLOPRAMIDE HCL 10 MG/2 ML VIAL IV SCH ×3 (02:14→14:03)
[2021-07-28] MEDS: PROPOFOL 100 ML IV PRN ×3 (03:00→13:23)
[2021-07-28] MEDS: NEPRO 1,000 ML BOTTLE NG SCH (04:23)
--- NOTE | 2021-07-28 04:29 | NUR ---
RESIDUAL 100 ML RESTARTED FEEDING WITH THE RATE OF 20ML/HR, PT STILL SEDATED AND IN FULL VENT SETTING WITH FIO2 100% SPO2 83% DNR CODE STATUS WILL CONT TO MONITOR
[2021-07-28 04:38] LABS: EOSINOPHILS % (AUTO) 0.3 % (0.0-6.0); HEMATOCRIT 31 % (39-51); HEMOGLOBIN 10.6 g/dL (13.5-17.5); LYMPHOCYTES # (AUTO) 0.4 K/uL (0.8-4.8); LYMPHOCYTES % (AUTO) 4.3 % (20.0-44.0); MEAN CORPUSCULAR HGB CONC 34 g/dl (31.0-36.0); MEAN CORPUSCULAR VOLUME 101 fL (80-96); MONOCYTES # (AUTO) 0.1 K/uL (0.1-1.30); MONOCYTES % (AUTO) 0.8 % (2.0-12.0); NEUTROPHILS # (AUTO) 7.7 K/uL (1.8-8.9); NEUTROPHILS % (AUTO) 94.6 % (43.0-81.0); PLATELET COUNT (AUTO) 81 K/uL (150-450); RED BLOOD CELL COUNT(AUTO) 3.08 MIL/uL (4.5-6.0); WHITE BLOOD COUNT (AUTO) 8.2 K/uL (4.3-11.0)
[2021-07-28 05:05] LABS: CARBON DIOXIDE 38 mmol/L (21-32); CHLORIDE 97 mmol/L (98-107); CREATININE 1.8 mg/dL (0.6-1.3); GLUCOSE 162 mg/dL (74-106); MAGNESIUM 2.8 mg/dL (1.8-2.4); PHOSPHORUS 4.8 mg/dL (2.5-4.9); POTASSIUM 5.6 mmol/L (3.5-5.1); SODIUM SERUM 138 mmol/L (136-145)
[2021-07-28] MEDS: MIDAZOLAM HCL 100 MG in IV NS 0.9% 80 ML IV PRN (05:06)
[2021-07-28 05:31] LABS: UREA NITROGEN, BLOOD 113 mg/dL (7-18)
[2021-07-28] MEDS ORDERED: NOREPINEPHRINE 4 MG/4 ML AMPUL IV ONE (05:39)
--- NOTE | 2021-07-28 06:15 | NUR ---
REPORTED TO PAULA GOLDSIMTH THE BUN 113- CREA 1.9 AND LACTIC ACID 4.7 WITH NO NEW ORDER
[2021-07-28] MEDS: NOREPINEPHRINE 8 MG in IV NS 0.9% 242 ML IV PRN (06:22)
[2021-07-28 06:48] LABS: BAND % (MANUAL) 21 % (0.0-5.0); LYMPHOCYTES % (MANUAL) 5 % (16-48); NEUTROPHILS % (MANUAL) 74 (42-76)
--- NOTE | 2021-07-28 07:14 | NUR ---
PT ON BED STILL SEDATED WITH PROPOFOL 35 MCG/KG/MIN, VERSED @ 7 MCG/HR FENTANYL @ 100 MCG/HR INFUSING VIA BAYRON PICC, STILL ON FULL EVNT SETTING WITH FIO2 100% SPO2 82% DNR STATUS BEDSIDE MONITOR READS SINUS RHYTHM 70'S, STILL ON LEVOPHED @ 0.02 MCG/KG/MIN STILL HAVE A CHEST TUBE WITH 50ML OUT PUT FOR THE WHOLE SHIFT CHEST TUBE DRESSING CHANGE, BED ON ON LOWEST POSITION AND LOCKED SIDE RAILS UP X2 WILL CONT TO MONITOR
--- NOTE | 2021-07-28 07:30 | NUR ---
RN NOTES PT FOUND IN SEMI FOWLERS POSITION DISPLAYING NO S/S OF DISTRESS, FLACC = 0 AND BILATERAL RISE AND FALL OF THE CHEST ON VENT ACCORDING TO RT PROTOCOL. R UA PICC IS INTACT, DRY AND CLEAN. LAST DRESSING CHANGE WAS 07/26. CHEST TUBE (R) DRESSING IS INTACT, NO ADVENTITOUS SOUNDS FROM DRESSING OR AUSCULTATION. TIDLING OBSERVE IN CHAMBER. FLEMING CATH INTACT AND PATIENT DRAINING BY GRAVITY BELOW PT. RN WILL MONITOR AND TREAT THROUGHTOUT SHIFT. SAFETY MEASURES IN PLACE, BED LOCKED AND IN LOWEST POSITION, SIDE RAILS UPX2, CALL LIGHT WITHIN REACH, BED ALARM ARMED.
[2021-07-28 08:07] LABS: ABG BASE EXCESS 4.3 mmol/L; ABG OXYGEN SATURATION 82.2 % (92.0-98.5); ABG PCO2 57.7 mmHg (35.0-45.0); ABG PH 7.349 (7.350-7.450); ABG PO2 51.1 mmHg (75.0-100.0); AaDO2 604.2 mmHg; COHb 0.1 % (0.5-1.5); MetHb 0.2 % (0.0-1.5); SITE, ABG Right Radial; VENT MODE, BG AC 28 500 +20 100%
[2021-07-28 08:36] LABS: BILIRUBIN,DIRECT 0.5 mg/dL (0.0-0.2); BILIRUBIN,TOTAL 0.9 mg/dL (0.2-1.0)
--- NOTE | 2021-07-28 08:45 | NUR ---
CRITICAL LAB LAKESHIA CALLED AND INFORMED RN THAT LACTIC ACID IS 4.[address] VALENCIA. Addendum: 07/28/21 at 0854 by MARK HUMPHRIES RN WRONG PATIENT
[2021-07-28] MEDS: DEXAMETHASONE SOD PHOSPHATE 4 MG/ML VIAL IV SCH (08:56)
[2021-07-28] MEDS: CLOTRIMAZOLE 1% 15 GM TUBE TP SCH ×2 (08:56→17:11)
[2021-07-28] MEDS: LINEZOLID RTU BAG 600 MG in PREMIX 1 EA IV SCH (09:00)
--- NOTE | 2021-07-28 09:44 | NUR ---
RT PEEP LOWERED TO [address] CROW. VT STILL NOT ACHIEVED ON VENTILATOR. DR CROW AWARE. Addendum: 07/28/21 at 0945 by WOLF WHITE RT Amended: Links added.
--- NOTE | 2021-07-28 10:00 | NUR ---
RN NOTE PT RESIDUAL WAS > 250 ML AT 0800. RN REMOVED ALL RESIDUAL AND STARTED FEEDING AT 20 ML/HR. PT RESIDUAL AT 1000 IS 120. RN WILL HOLD NEPRO AND INFORM OF FINDINGS.
[2021-07-28 12:40] LABS: CALCIUM, SERUM 7.8 mg/dL (8.5-10.1); CARBON DIOXIDE 39 mmol/L (21-32); CHLORIDE 97 mmol/L (98-107); CREATININE 1.7 mg/dL (0.6-1.3); GLUCOSE 131 mg/dL (74-106); POTASSIUM 4.9 mmol/L (3.5-5.1); SODIUM SERUM 139 mmol/L (136-145)
[2021-07-28 12:43] LABS: UREA NITROGEN, BLOOD 109 mg/dL (7-18)
[2021-07-28] MEDS: Sodium Bicarbonate 150 MEQ in IV D5W 1,000 ML IV SCH (14:03)
--- NOTE | 2021-07-28 14:20 | NUR ---
MD COMMUNICATION RN INFORMED MD THAT PT HAD RESIDUAL IN SPITE OF NO ACTIVE FEEDING. MD GAVE ORDERS: HOLD ALL NG TUBE FEEDING. RN READ BACK ORDER TO CONFIRM.
--- NOTE | 2021-07-28 14:36 | NUR ---
RT PATIENT REMAINS ORALLY INTUBATED ON [facility] VENT. PEEP WAS PLACED BACK TO [address] CROW. Addendum: 07/28/21 at 1438 by WOLF WHITE RT Amended: Links added.
[2021-07-28] MEDS: FENTANYL CITRAT IV 2,500 MCG in IV NS 0.9% 200 ML IV PRN (16:56)
--- NOTE | 2021-07-28 18:00 | NUR ---
RN NOTE HOSPICE NURSE ARRIVED
--- NOTE | 2021-07-28 18:30 | NUR ---
RN NOTE ORDERS RECEIVED FROM DR. VALENCIA: ADMIT RANDY HASSAN TO [facility] WITH DX: ACUTE HYPOXIC RESPIRATORY FAILURE. 1) MORPHINE 4MG IV Q30 PRN TO KEEP RR < 20. FIRST DOSE PRIOR TO EXTUBATION. 2) EXTUBATION WITH RT, THEN 6L SUPPLEMENTAL O2 NC, 3) ATIVAN 2MG IV Q2HR PRN FIRST DOSE PRIOR TO EXTUBATION4) STOP ALL DRUGS, RADIOLOGY AND LABS IMMEDIATELY. IF ANY LEVEL OF DISCOMFORT, PLEASE ADMIN MORPHINE 4MG BOLUS BEFORE CALLING CARRIE CLEARY FOR FURTHER ORDERS.
[2021-07-28] MEDS ORDERED: MORPHINE SULFATE INJ 4 MG/ML DISP.SYRIN IV PRN (19:00)
--- NOTE | 2021-07-28 19:26 | NUR ---
RN NOTE CARE TRANSFERED TO TELEX OPERATOR RN. SBAR AND REPORT GIVEN.
[2021-07-28] MEDS ORDERED: LORAZEPAM INJ 2 MG/ML VIAL IVP PRN (19:30)
--- NOTE | 2021-07-28 19:30 | NUR ---
ICU/PLATE GLASS GRINDER DAY SHIFT NURSE, MARK GAVE AN UPDATE OF PT TO BE . THE DAY RN MARK D/C'S CURRENT IV'S AND PUSHED MORPHINE, ALONG WITH CALLED THE DAUGHTER ALTON.
--- NOTE | 2021-07-28 19:45 | NUR ---
ICU/FIRE EXTINGUISHER CHARGER PT @1939. DAUGHTER CALLED TO BE NOTIFIED. STARTED THE PAPER WORK OF RECORD OF . HOUSE SUP. NOTIFIED.
--- NOTE | 2021-07-28 20:30 | NUR ---
ICU/FAST FOOD COOK CLIFF FROM [facility] [phone] WAS MADE AWARE PT HAD . SAID THAT THEY WILL BE HERE AT 2200 TO COLLECT BODY.
--- NOTE | 2021-07-28 21:02 | NUR ---
ICU/AUTO CAMP ATTENDANT NOTIFED HOSPICE ABOUT TIME OF . IT WAS [facility] [phone] OF [facility]. SAID OK.
--- NOTE | 2021-07-28 21:44 | NUR ---
RN/ICU- PRONOUNCEMENT OF :CODE STATUS :DNR, ON HOSPICE CARE.PT. UNRESPONSIVE TO ANY FORM OF STIMULI, PUPILS ARE FIXED AND DILATED. APNEIC, RESPIRATION=0, HEART TONES ARE ABSENT. [id number] PULSES ARE ABSENT. NO SIGN OF LIFE. PT. PRONOUNCED AT 1940. BY:BREANA OTERO RN/BSN
--- NOTE | 2021-07-28 22:26 | NUR ---
ICU/MAINTENANCE MECHANIC TELEPHONE THE MORTUARY [facility], IAN PATEL PICKED UP THE BODY. BELONGINGS OF PANTS AND SHIRT WERE GIVEN TO THE MORTUARY.
--- NOTE | 2021-07-28 22:32 | NUR ---
ICU/EMPLOYEE COMMUNICATIONS MANAGER BELONGINGS OF WALLET, RING, NECKLESS WAS NOT FOUND. CHARGE NURSE BREANA OTERO RN MADE AWARE. ALSO CALLED THE HOUSE SUP. CABRERA BELL CALLED TO ASK IF BELONGINGS WERE IN THE SAFE DOWNSTAIRS, SHE SAID NO.
== END 2021-07-28 19:40 | DRG 870 ==
LOC: ER 10:29 → TELE-TD 14:28 → TELE1 15:09 → ICU 07-15 12:50
PROVIDERS: ADMIT Nurse Practitioner Acute Care; ATTEND Nurse Practitioner Acute Care
PROC: XW033E5 Introduction of Remdesivir Anti-infective into Peripheral Vein, Percutaneous Approach, New Technology Group 5 (ICD-10-PCS; principal; 2021-07-11)
PROC: 0W9930Z Drainage of Right Pleural Cavity with Drainage Device, Percutaneous Approach (ICD-10-PCS; 2021-07-11)
PROC: XW033H5 Introduction of Tocilizumab into Peripheral Vein, Percutaneous Approach, New Technology Group 5 (ICD-10-PCS; 2021-07-12)
PROC: 5A1955Z Respiratory Ventilation, Greater than 96 Consecutive Hours (ICD-10-PCS; 2021-07-15)
PROC: 0BH17EZ Insertion of Endotracheal Airway into Trachea, Via Natural or Artificial Opening (ICD-10-PCS; 2021-07-15)
PROC: 02HV33Z Insertion of Infusion Device into Superior Vena Cava, Percutaneous Approach (ICD-10-PCS; 2021-07-16)
PROC: B548ZZA Ultrasonography of Superior Vena Cava, Guidance (ICD-10-PCS; 2021-07-16)
DX: A41.89 Other specified sepsis (principal); J12.82 Pneumonia due to coronavirus disease 2019; U07.1 COVID-19; J96.01 Acute respiratory failure with hypoxia; E43 Unspecified severe protein-calorie malnutrition; G92 Toxic encephalopathy; G93.41 Metabolic encephalopathy; J96.02 Acute respiratory failure with hypercapnia; N17.0 Acute kidney failure with tubular necrosis; D68.59 Other primary thrombophilia; E87.1 Hypo-osmolality and hyponatremia; K56.7 Ileus, unspecified; E87.4 Mixed disorder of acid-base balance; R57.9 Shock, unspecified; J93.9 Pneumothorax, unspecified; Z51.5 Encounter for palliative care; Z66 Do not resuscitate; F03.90 Unspecified dementia, unspecified severity, without behavioral disturbance, psychotic disturbance, mood disturbance, and anxiety; I25.10 Atherosclerotic heart disease of native coronary artery without angina pectoris; I10 Essential (primary) hypertension; E86.0 Dehydration; Z95.1 Presence of aortocoronary bypass graft; Z87.891 Personal history of nicotine dependence; D75.89 Other specified diseases of blood and blood-forming organs; R74.01 Elevation of levels of liver transaminase levels; F09 Unspecified mental disorder due to known physiological condition; E78.1 Pure hyperglyceridemia; E78.5 Hyperlipidemia, unspecified; D69.6 Thrombocytopenia, unspecified; E87.5 Hyperkalemia; I70.0 Atherosclerosis of aorta; T38.0X5A Adverse effect of glucocorticoids and synthetic analogues, initial encounter; J84.10 Pulmonary fibrosis, unspecified
CPT/HCPCS: 31720; 36415; 36569; 36600; 71045-TC; 80048-TC; 80053-TC; 80061-TC; 80076-TC; 81001; 82247-TC; 82248-TC; 82550-TC; 82728-TC; 82803-TC; 82962-TC; 83605-TC; 83615-TC; 83735-TC; 83880; 84100-TC; 84132-TC; 84478-TC; 84484-TC; 85025-TC; 85378-TC; 85610-TC; 85730-TC; 86140; 86140-TC; 86480; 86704; 86803; 87040-TC; 87070-TC; 87081-TC; 87086-TC; 87806; 87899; 93308-TC; 93970-TC; 94002-TC; 94003-TC; 94760-TC; 94799-TC; 97112-TC; 97530-TC; 99082-TC; A4216; A6253; A6403; G0378; J0360; J0610; J0692; J1100; J1200; J1630; J1650; J1815; J1940; J2020; J2060; J2250; J2270; J2765; J3010; J3262; J3490; J7030; J7050; J7060; J7070; U0003